=== PATIENT | female | born 1930 | race Caucasian/White ===

== ENCOUNTER 2016-06-26 06:49 | Observation (INO) | payer MEDICARE ==
[2016-06-26] MEDS ORDERED: NS 0.9% 1000 ML* 1,000 ML IV ONE ×2 (07:42→08:14)
[2016-06-26 08:09] LABS: Hematocrit 41 % (35-47); Hemoglobin 13.7 g/dl (12.0-16.0); Mean Corpuscular HGB Conc 34 g/dl (31-36); Mean Corpuscular Hemoglobin 33 pg (27-31); Mean Corpuscular Volume 96 fL (80-97); Mean Platelet Volume 8 um3 (7.4-10.4); Red Cell Distribution Width 15 % (10.5-15); White Blood Count 10.9 10^3/ul (3.5-10.8)
--- NOTE | 2016-06-26 08:19 | RAD ---
INDICATION: Abdominal pain. COMPARISON: Comparison is made with a prior chest x-ray study from July 17, 2012. TECHNIQUE: A portable view of the chest was obtained. FINDINGS: Cardiac and mediastinal contours appear to be within normal limits. Note is made of dorsal column stimulator leads which project over the mid dorsal spine. The lungs are clear. No pleural effusion is seen. IMPRESSION: NO EVIDENCE FOR ACUTE DISEASE.
[2016-06-26] MEDS ORDERED: Pantoprazole IV* 80 MG in NS 0.9% 250 ML* 250 ML IVPB ONE (08:20)
[2016-06-26] MEDS ORDERED: Ondansetron INJ* 2 MG/ML VIAL IV ONE (08:20)
[2016-06-26 08:42] LABS: Albumin 4.3 g/dL (3.2-5.2); Calcium 9.4 mg/dL (8.6-10.3); EGFR African American 85.4 (>60); EGFR Non-African American 66.4 (>60); Globulin 2.7 g/dL (2-4); Potassium 3.3 mmol/L (3.5-5.0); Total Bilirubin 0.7 mg/dL (0.2-1.0)
[2016-06-26] MEDS ORDERED: HYDROmorphone INJ* 1 MG/ML CARPUJECT SYRINGE IV ONE ×2 (08:51)
[2016-06-26] MEDS ORDERED: Iohexol 300* (CONTRAST) 10 ML SDV IV ONE (09:07)
[2016-06-26] MEDS ORDERED: oxyCODONE/Acetamin 5/325 MG* TAB PO PRN (10:11)
[2016-06-26] MEDS ORDERED: Acetaminophen TAB* 325 MG PO PRN (10:11)
[2016-06-26] MEDS ORDERED: NS 0.9% 1000 ML* 1,000 ML IV SCH (10:15)
--- NOTE | 2016-06-26 10:54 | RAD ---
INDICATION: Abdominal pain, bloody diarrhea. COMPARISON: Comparison is made with a prior CT of the abdomen and pelvis from June 08, 2010. TECHNIQUE: A CT scan of the abdomen and pelvis was performed with intravenous and oral contrast following intravenous injection of 109 ml of Omnipaque 300 nonionic contrast. Contiguous axial sections were obtained from the lung bases through the symphysis pubis. Images were reconstructed in the coronal and sagittal planes. FINDINGS: The lung bases are clear. No pleural effusion is present. The liver and spleen are normal in size without significant focal abnormality. The liver is decreased in attenuation consistent with fatty infiltration. No calcified gallstones are seen. The pancreas is within normal limits in size. The kidneys and adrenal glands are normal in size. No hydronephrosis is seen. No significant focal renal abnormality is seen. The aorta is normal in caliber and mildly tortuous. There is moderate calcific plaque present. No significant enlarged retroperitoneal lymph nodes are seen. The stomach, small and large bowel appear nondistended. The patient is status post appendectomy by history. There is moderate circumferential thickening of the wall of the descending and sigmoid colon with mild stranding in the adjacent mesenteric fat most consistent with colitis. There is moderate descending and sigmoid diverticulosis. The patient is status post hysterectomy. No free intraperitoneal air or fluid is seen. There is a focal lucent lesion present within the right iliac bone with peripheral sclerotic margin and central calcification which is unchanged from the prior study. No other focal osseous abnormalities are seen. Note is made of dorsal column stimulator leads present. IMPRESSION: 1. DIFFUSE THICKENING OF THE WALL OF THE DESCENDING AND SIGMOID COLON MOST CONSISTENT WITH COLITIS. 2. HEPATIC STEATOSIS. 3. STATUS POST APPENDECTOMY AND HYSTERECTOMY.
[2016-06-26] MEDS: NS 0.9% 1000 ML* 1,000 ML IV SCH ×2 (12:45→19:30)
[2016-06-26] MEDS: KCL 20 MEQ/100 ML IVPREMIX* 20 MEQ/100 ML BAG IV SCH ×2 (12:46→18:15)
[2016-06-26] MEDS: Lisinopril TAB* 5 MG PO SCH (12:49)
[2016-06-26] MEDS: Hydrochlorothiazide TAB* 25 MG PO SCH (12:49)
[2016-06-26] MEDS: HYDROmorphone TAB* 2 MG PO PRN ×2 (12:49→23:05)
[2016-06-26 14:50] LABS: Hematocrit 37 % (35-47); Hemoglobin 12.2 g/dl (12.0-16.0)
[2016-06-26] MEDS: Morphine INJ* 2 MG/ML 1 ML CARPUJECT IV PRN (16:00)
[2016-06-26] MEDS ORDERED: KCL 20 MEQ/100 ML IVPREMIX* 20 MEQ/100 ML BAG ONE (18:12)
--- NOTE | 2016-06-26 19:47 | HP ---
HISTORY AND PHYSICAL: DATE OF ADMISSION: 06/26/16 PRIMARY CARE PROVIDER: Lizandro Esquivel MD CHIEF COMPLAINT: Bloody diarrhea. HISTORY OF PRESENT ILLNESS: Ms. Bourne is an 86-year-old female with history of chronic pain and postlaminectomy syndrome, who stated that she started having "regular diarrhea" in the evening of 06/25/16. The patient stated that she had no abdominal pain, but she was going to the bathroom very frequently. When she went to the bathroom at 3 p.m. just before she had an urge to defecate, she had crampy abdominal pain in the left lower quadrant. Subsequent to that, she had bright red blood per rectum. Stated there was a large amount of bright red blood. She had a couple of more episodes before she presented to the emergency department. Here, she had another bloody bowel movement; it was approximately 100 cc of blood as documented by the registered nurse. The patient denies nausea or vomiting. She still has intermittent left lower quadrant abdominal cramping. Her hemoglobin so far is stable. She is going to be placed for observation with a diagnosis of lower GI bleed. PAST MEDICAL HISTORY: 1. Hypertension. 2. Depression. 3. Postlaminectomy syndrome and chronic pain, status post dorsal column stimulator placement by Dr. Boyce in February of 2016. 4. Rheumatoid arthritis. 5. Tonsillectomy and adenoidectomy as a child. 6. Hysterectomy. 7. The patient had a colonoscopy for hematochezia and diarrhea in [address] Rosen, who noted changes consistent with colitis, most likely ischemic colitis, centered around the splenic flexure. CURRENT MEDICATIONS: At home include: 1. Omeprazole 40 mg daily. 2. MiraLAX 17 g daily p.r.n. 3. Methotrexate 12.5 mg weekly. 4. Lisinopril with hydrochlorothiazide 25/2.5 one tablet daily. 5. Hydromorphone 4 mg orally every 4 hours p.r.n. 6. Folic acid 1 mg daily. 7. Aspirin 81 mg daily. ALLERGIES: CIPRO, ENBREL, TOPICAL LIDODERM, and ADALIMUMAB. FAMILY HISTORY: Positive for mother with diabetes and father was of prostate cancer. SOCIAL HISTORY: The patient denies tobacco, alcohol, or drug use. She is retired [employer] and she used to work at [employer], an [employer] until the age of 83. She currently is retired and lives at home with her , who is her surrogate. Her 's first name is Lizandro. REVIEW OF SYSTEMS: Please see history of present illness. The patient stated that her ankles occasionally get swollen. She currently denies abdominal pain, but occasionally gets abdominal cramping, last episode at 3 a.m. in the morning. The patient has history of chronic pain, but it is well controlled with medications. All the other 14 systems were reviewed with the patient and were otherwise negative. PHYSICAL EXAMINATION GENERAL: This is a very pleasant 86-year-old female who is in no acute distress. Alert, awake, and oriented x3. VITAL SIGNS: Blood pressure 159/88, heart rate of 84 and regular, respiratory rate 20, oxygen saturation 97% on room air, temperature 97.9. HEENT: Head atraumatic, normocephalic. Eyes: Pupils equal, reactive to light and accommodation. Oropharynx clear. Mucosa moist. NECK: Supple. No JVD. No bruits bilaterally. RESPIRATORY: Clear to auscultation bilaterally with very scant bibasilar crackles. CARDIOVASCULAR: Regular rate and rhythm. No murmur. ABDOMEN: Soft, nontender. Bowel sounds present in all 4 quadrants. EXTREMITIES: There is no edema. Pulses +2 bilaterally. No clubbing or cyanosis. NEURO EVALUATION: Speech clear. Cranial nerves II through XII grossly intact. Motor strength is 5/5 bilaterally. LABORATORY DATA: Showed sodium of 137, potassium 2.3, chloride 100, carbon dioxide 29, BUN 18, creatinine 0.82. Liver function tests were unremarkable. Troponin of 0. Brain natriuretic peptide was 48. CBC: White blood cell count of 10.9, hemoglobin of 13.7, hematocrit of 41, and platelets of 196. The patient's EKG shows sinus tachycardia with a heart rate of 93 beats per minute with flattening of T waves throughout. Comparing with an EKG from 2013, there were no gross changes noted. CT of abdomen and pelvis was pending at the time of dictation. ASSESSMENT AND PLAN: An 86-year-old female with recurrent crampy abdominal pain and lower GI bleed, who has history of ischemic colitis bout in 2010. At this point, ischemic colitis is most likely. CT of the abdomen was still pending at the time of dictation. The patient is going to be placed on generous intravenous hydration, clear liquid diet, and Protonix intravenously twice a day. I will ask Dr. Rosen to see patient in consultation. In regards to her rheumatoid arthritis, the patient is on methotrexate weekly and that is going to be continued as outpatient. In regards to chronic pain, morphine as well as Dilaudid p.o. is going to be provided. In regards to hypertension, the patient's hydrochlorothiazide and lisinopril is going to be continued. Likely her blood pressure is not controlled, but she did not receive her morning medications either. For DVT prophylaxis, the patient is going to be placed on sequential compression devices and anticoagulation is contraindicated due to acute bleed. For code status, the patient's code status is full and her surrogate is her . TIME SPENT: Approximately 65 minutes were spent on admission of this patient, more than half that time was spent [id number] with the patient during the interview and physical exam. CC: Lizandro Esquivel MD; Jaret Boyce MD; Antoine Rosen MD * [id number]/[facility] #: [id number] MTDD
[2016-06-26] MEDS: Pantoprazole IV* 40 MG IV SCH (20:49)
--- NOTE | 2016-06-26 21:03 | CONS ---
CC: Dr. Rivas CONSULTATION REPORT: DATE OF CONSULTATION: 06/26/16 REQUESTING PHYSICIAN: Dr. Miller. INDICATION: Bloody diarrhea. NARRATIVE: Ms. Bourne is a pleasant 86-year-old female well known to myself. I had seen her 5 years ago for a similar episode. She had ischemic colitis documented by colonoscopy and biopsies back the n. The patient states she was doing well until approximately 10 o'clock last night. She developed diarrhea. She continued to have diarrhea approximately every hour until 3 a.m. when she developed c ramps and then bleeding per rectum. She states that it was bright red. She continued to have bleed ing per rectum and then decided to come to the emergency room early this morning. She states that s he feels a little bit better now. She denies any fevers or chills. She denies any sick contacts. No new medications. PAST MEDICAL HISTORY: Significant for: 1. Depression. 2. Hypertension. 3. Rheumatoid arthritis. PAST SURGICAL HISTORY: Include: 1. Adenoidectomy. 2. Hysterectomy. ALLERGIES: Include ASPIRIN, HYDROMORPHONE, LISINOPRIL, HYDROCHLOROTHIAZIDE, METHOTREXATE, MIRALAX. She is allergic to CIPRO AND ENBREL. FAMILY HISTORY: Diabetes and prostate cancer in her family. REVIEW OF SYSTEMS: Twelve systems were reviewed, other than that mentioned in the HPI were unremark able. PHYSICAL EXAMINATION: Temperature is 99.2, blood pressure 159/69, pulse is 16. General: Well-appea ring female, no apparent distress. Alert, oriented, pleasant, fluent. Sitting up in bed, watching TV. HEENT: Mucous membranes are moist. No lesions, ulcers, or exudate. Heart: Regular rate and rhythm. Lungs: Clear to auscultation. Abdomen: Positive bowel sounds. Obese, soft, nontender, a nd nondistended. No hepatosplenomegaly. DIAGNOSTIC STUDIES/LAB DATA: Labs of note, white count is 10.9, hemoglobin is 13.7, platelets were 196, INR is 0.94, BUN of 18, creatinine of 0.82. CAT scan shows descending and sigmoid colon thicke jose consistent with colitis. ASSESSMENT AND PLAN: This is a pleasant 86-year-old female with a history of ischemic colitis in th e past who presents with similar symptoms. Differential would include ischemic colitis, diverticuli tis versus infectious colitis. Given the fact she is having crampy abdominal pain with bloody diarr hea. I favor ischemic colitis given her history of ischemic colitis in the past. Usually, divertic ular bleeding is painless. This could be an infectious process, but the patient denies any fevers o r chills. At this point, she is on fluids and pain control. Antibiotics have not been started yet. I would recommend we continue to hold off on them unless she were to develop a fever or worsening white count. We will continue to follow along very closely. [id number]/[facility] #: [id number]
[2016-06-26 21:53] LABS: Hematocrit 35 % (35-47); Hemoglobin 11.8 g/dl (12.0-16.0)
[2016-06-26] MEDS ORDERED: Ondansetron INJ* 2 MG/ML VIAL IV PRN (21:56)
[2016-06-26 21:59] LABS: Comments Flag Yes
[2016-06-27] MEDS: Morphine INJ* 2 MG/ML 1 ML CARPUJECT IV PRN (01:52)
[2016-06-27] MEDS: HYDROmorphone TAB* 2 MG PO PRN ×3 (05:39→14:30)
[2016-06-27 06:31] LABS: Hematocrit 36 % (35-47); Hemoglobin 12.3 g/dl (12.0-16.0); Mean Corpuscular HGB Conc 34 g/dl (31-36); Mean Corpuscular Hemoglobin 33 pg (27-31); Mean Corpuscular Volume 97 fL (80-97); Mean Platelet Volume 8 um3 (7.4-10.4); Red Blood Count 3.73 10^6/ul (4.0-5.4); Red Cell Distribution Width 15 % (10.5-15); White Blood Count 9.5 10^3/ul (3.5-10.8)
[2016-06-27 06:43] LABS: BUN/Creatinine Ratio 13.2 (8-20); Calcium 8.4 mg/dL (8.6-10.3); EGFR African American 93.2 (>60); EGFR Non-African American 72.5 (>60); Potassium 3.3 mmol/L (3.5-5.0)
[2016-06-27 07:55] VITALS: BP 137/72
[2016-06-27] MEDS ORDERED: Potassium Chlor TAB* 20 MEQ TAB.ER PO ONE (07:59)
[2016-06-27] MEDS: Hydrochlorothiazide TAB* 25 MG PO SCH (08:12)
[2016-06-27] MEDS: Pantoprazole IV* 40 MG IV SCH (08:12)
[2016-06-27] MEDS: Lisinopril TAB* 5 MG PO SCH (08:13)
[2016-06-27 14:17] LABS: Hematocrit 35 % (35-47); Hemoglobin 11.8 g/dl (12.0-16.0)
[2016-06-27 14:19] LABS: Comments Flag Yes
--- NOTE | 2016-06-28 00:40 | DS ---
DISCHARGE SUMMARY: DATE OF ADMISSION: 06/26/16 DATE OF DISCHARGE: 06/27/16 PRIMARY CARE PROVIDER: Dr. Lizandro Esquivel. DISCHARGE DIAGNOSIS: Lower GI bleed due to ischemic colitis. SECONDARY DIAGNOSES: 1. Hypertension. 2. Depression. 3. Postlaminectomy syndrome and chronic pain, status post dorsal column stimulator placement. 4. Rheumatoid arthritis. 5. Tonsillectomy and adenoidectomy as a child. 6. Hysterectomy. 7. History of ischemic colitis in 2010. MEDICATIONS AT DISCHARGE: Include: 1. Omeprazole 40 mg daily. 2. MiraLAX 17 g daily p.r.n. 3. Methotrexate 12.5 mg weekly. 4. Lisinopril with hydrochlorothiazide 25/2.5 one tablet daily. 5. Hydromorphone 2 to 4 mg orally every 4 hours p.r.n. 6. Folic acid 1 mg daily. 7. The patient's aspirin is to held for another five days and restarted in five days if no bleeding recurs. LABORATORY DATA ON THE DAY OF DISCHARGE: Showed white blood cell count of 9.5, hemoglobin 12.3, hematocrit 36 and platelets of 179. Sodium was 141, potassium 3.3, chloride 108, carbon dioxide 27, BUN 10, creatinine 0.76. CT of abdomen and pelvis obtained on 06/26/16, impression: "Diffuse thickening of the wall of the descending and sigmoid colon most consistent with colitis. Hepatic steatosis. Status post appendectomy and hysterectomy." CONSULTATION DURING THE HOSPITAL STAY: Dr. Rosen from Gastroenterology. HOSPITALIZATION COURSE: Jesu Bourne is an 86-year-old female with a history of ischemic colitis several years ago who presented complaining of "regular diarrhea" then later on after 5 hours evolved into bright red blood. The patient had several bloody bowel movements and associated with left lower quadrant and abdominal cramping. The patient was observed on medical floor. Her hemoglobin and hematocrit had been basically unchanged from admission. Her breathing was resolved by the time of discharge. Her abdominal cramping also resolved. From the impression from Dr. Rosen's evaluation, the patient most likely had another bout of ischemic colitis. Due to the bleed, the patient is recommended to hold her aspirin for another 5 days and then restart it. She is recommended to follow up with Dr. Esquivel in approximately 4 to 7 days. PHYSICAL EXAMINATION: At the time of discharge, blood pressure of 137/72, heart rate of 98 and regular, respiratory rate 16, oxygen saturation 97% on room air, temperature 98.0. General: The patient is a very pleasant 86-year- old female who is in no acute distress. Alert, awake, and oriented x3. HEENT: Head atraumatic, normocephalic. Pupils equal, reactive to light and accommodation. Oropharynx clear. Mucosa moist. Neck: Supple. No JVD. No bruits bilaterally. Cardiovascular: Regular rhythm. No murmur. Respiratory: Clear to auscultation bilaterally. Abdomen: Soft, nontender. Bowel sounds present in all 4 quadrants. Extremities: There is trace pedal edema. Pulses + 2 bilaterally. No clubbing or cyanosis. Neurologic: Speech clear. Cranial nerves II through XII grossly intact. Motor strength is 5/5 bilaterally. Please note that this is a short summary of the patient's hospital stay. Please refer to further medical records for details. CC: Dr. Antoine Rosen; Dr. Lizandro Esquivel* [id number]/[facility] #: [id number] [facility]
--- NOTE | 2016-07-05 09:49 | ED ---
Micheal Tobias Adam, scribed for Miller Jones MD on 06/26/16 at 0725 . GI/ HPI - HPI Summary HPI Summary: Pt is an 86 year old female presenting with abdominal cramping and bloody diarrhea. The diarrhea set on at 22:00 last night; the pt did not examine its appearance. At approximately 04:00 this morning the abdominal cramping set on and she began to notice "3-4 tablespoons" of blood in the toilet. The pain in the abdomen is worse in the LLQ. Pt also c/o generalized weakness. She denies fever, chills, CP, SOB, and external hemorrhoids. PMHx of irritable bowel, diverticulitis (years ago), RA, and HTN. Surgical Hx of appy, hysterectomy, T&A , and lumbar decompression. - History of Current Complaint Chief Complaint: EDGeneral Time Seen by Provider: 06/26/16 07:17 Stated Complaint: CRAMPS/BLOODY DIARRHEA Hx Obtained From: Patient Onset/Duration: Started Hours Ago, Atraumatic, Still Present Timing: Constant, Lasting Hours Severity: Moderate Current Severity: Moderate Location of Pain: LLQ Pain Characteristics: Cramping Associated Signs and Symptoms: Positive: Blood w/Stool, Diarrhea. Negative: External Hemorrhoids, Chest Pain Aggravating Factor(s): Nothing Alleviating Factor(s): Nothing - Allergy/Home Medications Allergies/Adverse Reactions: Allergies Allergy/AdvReac Type Severity Reaction Status Date / Time Adalimumab [From Humira] Allergy Intermediate Hives Verified 06/24/16 14:29 Benzyl Alcohol [From Enbrel] AdvReac Intermediate Swelling Verified 06/24/16 14: 29 Etanercept [From Enbrel] AdvReac Intermediate Swelling Verified 06/24/16 14:29 Tromethamine [From Enbrel] AdvReac Intermediate Swelling Verified 06/24/16 14:29 Ciprofloxacin [From Cipro] AdvReac Mild Vomiting Verified 06/26/16 10:30 Lidocaine [From Lidoderm] AdvReac Mild Itching Verified 06/24/16 14:29 PMH/Surg Hx/FS Hx/Imm Hx Endocrine/Hematology History: Denies: Hx Anticoagulant Therapy, Hx Diabetes, Hx Thyroid Disease, Other Endocrine/Hematological Disorders Cardiovascular History: Reports: Hx Hypertension - ON MEDS Denies: Hx Pacemaker/ICD, Other Cardiovascular Problems/Disorders Respiratory History: Denies: Hx Asthma, Hx Chronic Obstructive Pulmonary Disease (COPD), Other Respiratory Problems/Disorders GI History: Reports: Hx Irritable Bowel Denies: Hx Ulcer, Other GI Disorders History: Denies: Other Problems/Disorders Musculoskeletal History: Reports: Hx Arthritis - RA, Hx Rheumatoid Arthritis, Hx Back Problems, Hx Fibromyalgia, Hx Osteoporosis, Other Musculoskeletal History - SPINAL STENOSIS Sensory History: Reports: Hx Cataracts - bilateral cataracts, Hx Contacts or Glasses - GLASSES, Hx Vision Problem Denies: Hx Hearing Aid - ZUNI, Other Sensory Impairments Opthamlomology History: Reports: Hx Cataracts - bilateral cataracts, Hx Contacts or Glasses - GLASSES, Hx Vision Problem Denies: Other Sensory Impairments Neurological History: Reports: Hx Headaches - PT STATES HAPPENS VERY RARELY ANYMORE Denies: Other Neuro Impairments/Disorders - PAIN CLINIC INJECTIONS Psychiatric History: Denies: Hx Panic Disorder, Other Psychiatric Issues/Disorders - Surgical History Surgery Procedure, Year, and Place: appendectomy, hysterectomy, T&A. Lumbar decompression L4/5. TRIAL DCS Hx Anesthesia Reactions: No Infectious Disease History: No Infectious Disease History: Denies: Hx Clostridium Difficile, Hx Hepatitis, Hx Human Immunodeficiency Virus (HIV), Hx of Known/Suspected MRSA, Hx Shingles, Hx Tuberculosis, Traveled Outside the [place] in Last 30 Days - Family History Known Family History: Positive: Unknown Family History: NON CONTRIBUTORY - Social History Occupation: Retired Lives: With Family - Alcohol Use: None Hx Substance Use: No Substance Use Type: Reports: None Substance Use Comment - Amount & Last Used: dilaudid Hx Tobacco Use: No Smoking Status (MU): Never Smoked Tobacco Have You Smoked in the Last Year: No Review of Systems Constitutional: Negative Negative: Fever, Chills Negative: Chest Pain Negative: Shortness Of Breath Positive: Abdominal Pain, Diarrhea Positive: Weakness All Other Systems Reviewed And Are Negative: Yes Physical Exam - Summary Physical Exam Summary: GENERAL: Awake, alert, oriented, no acute distress, very pleasant HEENT: Head is normocephalic, atraumatic, anicteric sclera, pink conjunctiva, mucous membranes moist, no erythema, no discharge, no lesions, neck is supple, trachea is midline, no JVD CARDIAC: Regular rate and rhythm, S1, S2, no rub, no murmur, no gallop, 2+ radial and pedal pulses bilaterally RESPIRATORY: Clear to auscultation bilaterally with no rales, rhonchi, or wheezes, non-tender ABDOMEN: Tenderness in the LLQ. Bowel sounds positive, no bruit, soft, no tenderness over McBurneys point, negative [place] sign, negative Psoas sign, 2 + femoral pulses, no CVA tenderness EXTREMITIES: No edema, warm, dry, moving all extremities in a grossly normal manner NEUROLOGICAL: Mood is appropriate, moving all extremities in a grossly normal manner Triage Information Reviewed: Yes Vital Signs On Initial Exam: Initial Vitals Temp Pulse Resp BP Pulse Ox 97.9 F 84 20 159/88 97 06/26/16 07:13 06/26/16 07:13 06/26/16 07:13 06/26/16 07:13 06/26/16 07:13 Vital Signs Reviewed: Yes Diagnostics - Vital Signs Vital Signs Temp Pulse Resp BP Pulse Ox 06/26/16 07:13 97.9 F 84 20 159/88 97 - Laboratory Lab Results: Lab Results 06/26/16 06/26/16 06/26/16 Range/Units 07:50 07:50 07:50 WBC 10.9 H (3.5-10.8) 10^3/ul RBC 4.20 (4.0-5.4) 10^6/ul Hgb 13.7 (12.0-16.0) g/dl Hct 41 (35-47) % MCV 96 (80-97) fL MCH 33 H (27-31) pg MCHC 34 (31-36) g/dl RDW 15 (10.5-15) % Plt Count 196 (150-450) 10^3/ul MPV 8 (7.4-10.4) um3 Neut % (Auto) 85.5 H (38-83) % Lymph % (Auto) 7.7 L (25-47) % Davidson % (Auto) 6.0 (1-9) % Eos % (Auto) 0.4 (0-6) % Baso % (Auto) 0.4 (0-2) % Absolute Neuts (auto) 9.3 H (1.5-7.7) 10^3/ul Absolute Lymphs (auto) 0.8 L (1.0-4.8) 10^3/ul Absolute Monos (auto) 0.6 (0-0.8) 10^3/ul Absolute Eos (auto) 0 (0-0.6) 10^3/ul Absolute Basos (auto) 0 (0-0.2) 10^3/ul Absolute Nucleated RBC 0 10^3/ul Nucleated RBC % 0 INR (Anticoag Therapy) 0.94 (0.89-1.11) APTT 24.1 L (26.0-36.3) seconds Sodium 137 (133-145) mmol/L Potassium 3.3 L (3.5-5.0) mmol/L Chloride 100 L (101-111) mmol/L Carbon Dioxide 29 (22-32) mmol/L Anion Gap 8 (2-11) mmol/L BUN 18 (6-24) mg/dL Creatinine 0.82 (0.51-0.95) mg/dL Est GFR ( Amer) 85.4 (>60) Est GFR (Non-Af Amer) 66.4 (>60) BUN/Creatinine Ratio 22.0 H (8-20) Glucose 145 H (70-100) mg/dL Lactic Acid (0.5-2.0) mmol/L Calcium 9.4 (8.6-10.3) mg/dL Total Bilirubin 0.70 (0.2-1.0) mg/dL AST 23 (13-39) U/L ALT 26 (7-52) U/L Alkaline Phosphatase 96 (34-104) U/L Total Creatine Kinase 42 (10-223) U/L CK-MB (CK-2) 1.1 (0.6-6.3) ng/mL Troponin I 0.00 (<0.04) ng/mL B-Natriuretic Peptide ( - 100) pg/mL Total Protein 7.0 (6.4-8.9) g/dL Albumin 4.3 (3.2-5.2) g/dL Globulin 2.7 (2-4) g/dL Albumin/Globulin Ratio 1.6 (1-3) Blood Type Antibody Screen 06/26/16 06/26/16 06/26/16 Range/Units 07:50 07:50 07:50 WBC (3.5-10.8) 10^3/ul RBC (4.0-5.4) 10^6/ul Hgb (12.0-16.0) g/dl Hct (35-47) % MCV (80-97) fL MCH (27-31) pg MCHC (31-36) g/dl RDW (10.5-15) % Plt Count (150-450) 10^3/ul MPV (7.4-10.4) um3 Neut % (Auto) (38-83) % Lymph % (Auto) (25-47) % Davidson % (Auto) (1-9) % Eos % (Auto) (0-6) % Baso % (Auto) (0-2) % Absolute Neuts (auto) (1.5-7.7) 10^3/ul Absolute Lymphs (auto) (1.0-4.8) 10^3/ul Absolute Monos (auto) (0-0.8) 10^3/ul Absolute Eos (auto) (0-0.6) 10^3/ul Absolute Basos (auto) (0-0.2) 10^3/ul Absolute Nucleated RBC 10^3/ul Nucleated RBC % INR (Anticoag Therapy) (0.89-1.11) APTT (26.0-36.3) seconds Sodium (133-145) mmol/L Potassium (3.5-5.0) mmol/L Chloride (101-111) mmol/L Carbon Dioxide (22-32) mmol/L Anion Gap (2-11) mmol/L BUN (6-24) mg/dL Creatinine (0.51-0.95) mg/dL Est GFR ( Amer) (>60) Est GFR (Non-Af Amer) (>60) BUN/Creatinine Ratio (8-20) Glucose (70-100) mg/dL Lactic Acid 1.7 (0.5-2.0) mmol/L Calcium (8.6-10.3) mg/dL Total Bilirubin (0.2-1.0) mg/dL AST (13-39) U/L ALT (7-52) U/L Alkaline Phosphatase (34-104) U/L Total Creatine Kinase (10-223) U/L CK-MB (CK-2) (0.6-6.3) ng/mL Troponin I (<0.04) ng/mL B-Natriuretic Peptide 48 ( - 100) pg/mL Total Protein (6.4-8.9) g/dL Albumin (3.2-5.2) g/dL Globulin (2-4) g/dL Albumin/Globulin Ratio (1-3) Blood Type O Positive Antibody Screen Negative Result Diagrams: 06/27/16 14:09 06/27/16 06:15 Lab Statement: Any lab studies that have been ordered have been reviewed, and results considered in the medical decision making process. - Radiology CXR Xray Interpretation: No Acute Changes Radiology Interpretation Completed By: Radiologist - CT A/P CT Interpretation Completed By: Radiologist - IMPRESSION: 1. DIFFUSE THICKENING OF THE WALL OF THE DESCENDING AND SIGMOID COLON MOST CONSISTENT WITH COLITIS. 2. HEPATIC STEATOSIS. 3. STATUS POST APPENDECTOMY AND HYSTERECTOMY. - EKG 07:53 Cardiac Rate: NL - 93 BPM EKG Rhythm: Sinus Rhythm - Normal EKG Interpretation: No STEMI - Additional Comments Diagnostic Additional Comments: Stool Occult Blood - POSITIVE Troponin I - 0.00 GIGU Course/Dx - Diagnoses Provider Diagnoses: GI BLEED Discharge - Discharge Plan Condition: Improved Disposition: ADMITTED TO [facility] documentation as recorded by the Micheal ling Adam accurately reflects the service I personally performed and the decisions made by , Miller Jones MD.
== END 2016-06-27 14:40 | disposition home or self-care (01) ==
LOC: ED 06:49 → MED 10:11
PROVIDERS: ADMIT Internal Medicine; ATTEND Internal Medicine
DX: K92.2 Gastrointestinal hemorrhage, unspecified (principal); K55.9 Vascular disorder of intestine, unspecified; R10.30 Lower abdominal pain, unspecified; I10 Essential (primary) hypertension; F32.9 Major depressive disorder, single episode, unspecified; M06.9 Rheumatoid arthritis, unspecified; R94.31 Abnormal electrocardiogram [ECG] [EKG]; N28.89 Other specified disorders of kidney and ureter; Z79.899 Other long term (current) drug therapy; Z88.8 Allergy status to other drugs, medicaments and biological substances; Z88.1 Allergy status to other antibiotic agents
CPT/HCPCS: 36415; 71010; 74177; 80048; 80053; 82272; 82550; 82553; 83605; 83880; 84484; 85014; 85018; 85025; 85610; 85730; 86850; 86900; 86901; 93005; 96365; 96366; 96367; 96375; 96376; 99285; A9270-GY; G0378; J1170; J2270; J2405; J3480; Q9967

== ENCOUNTER 2016-08-11 11:13 | Emergency (ER) | payer MEDICARE ==
[2016-08-11 11:33] VITALS: BP 165/80
--- NOTE | 2016-08-11 12:38 | RAD ---
HISTORY: Wheezing COMPARISONS: June 26, 2016 VIEWS: 2: Frontal dual-energy and lateral views of the chest. FINDINGS: CARDIOMEDIASTINAL SILHOUETTE: The cardiomediastinal silhouette is normal. TRACE: The trace are normal. PLEURA: The costophrenic angles are sharp. No pleural abnormalities are noted. LUNG PARENCHYMA: There is mild hyperinflation. ABDOMEN: The upper abdomen is clear. There is no subphrenic gas. BONES AND SOFT TISSUES: A dorsal column stimulator is noted OTHER: None. IMPRESSION: MILD HYPERINFLATION. NO ACTIVE CARDIOPULMONARY DISEASE.
--- NOTE | 2016-08-11 13:02 | UC ---
Respiratory Complaint HPI - HPI Summary HPI Summary: ONE MONTH OF CONGESTION AND COUGH WITH WHEEZING AT NIGHT. SUPPOSED TO GO TO SURGERY "ANYTIME WITHIN THE NEXT FEW WEEKS". - History of Current Complaint Chief Complaint: UCRespiratory Stated Complaint: COUGH WHEEZING Time Seen by Provider: 08/11/16 11:54 Hx Obtained From: Patient Hx Last Menstrual Period: NA Onset/Duration: Gradual Onset, Lasting Weeks, Still Present Timing: Intermittent Episodes Severity Initially: Mild Severity Currently: Moderate Character: Cough: Nonproductive Aggravating Factors: Deep Breaths, Recumbent Position Alleviating Factors: Spontaneous Resolution Associated Signs And Symptoms: Positive: URI, Nasal Congestion, Hoarseness - Risk Factors Pulmonary Embolism Risk Factors: Negative Cardiac Risk Factors: Negative Pseudomonas Risk Factors: Negative Tuberculosis Risk Factors: Negative - Allergies/Home Medications Allergies/Adverse Reactions: Allergies Allergy/AdvReac Type Severity Reaction Status Date / Time Adalimumab [From Humira] Allergy Intermediate Hives Verified 07/14/16 15:41 Benzyl Alcohol [From Enbrel] AdvReac Intermediate Swelling Verified 07/14/16 15: 41 Etanercept [From Enbrel] AdvReac Intermediate Swelling Verified 07/14/16 15:41 Tromethamine [From Enbrel] AdvReac Intermediate Swelling Verified 07/14/16 15:41 Ciprofloxacin [From Cipro] AdvReac Mild Vomiting Verified 07/14/16 15:41 Lidocaine [From Lidoderm] AdvReac Mild Itching Verified 07/14/16 15:41 PMH/Surg Hx/FS Hx/Imm Hx Previously Healthy: Yes Endocrine History Of: Denies: Diabetes, Thyroid Disease Cardiovascular History Of: Reports: Hypertension Denies: Cardiac Disorders, Pacemaker/ICD Respiratory History Of: Reports: Bronchitis Denies: COPD, Asthma GI/ History Of: Denies: Ulcer Other History Of: Negative For: Anticoagulant Therapy - Surgical History Surgical History: Yes Surgery Procedure, Year, and Place: appendectomy, hysterectomy, T&A. Lumbar decompression L4/5. TRIAL DCS - Family History Known Family History: Positive: Unknown Family History: NON CONTRIBUTORY - Social History Occupation: Retired Lives: With Family Alcohol Use: None Substance Use Type: None Substance Use Comment - Amount & Last Used: dilaudid Smoking Status (MU): Never Smoked Tobacco Have You Smoked in the Last Year: No - Immunization History Most Recent Influenza Vaccination: 2016 Most Recent Tetanus Shot: in the past Most Recent Pneumonia Vaccination: 2016 Review of Systems Constitutional: Negative Skin: Negative Eyes: Negative ENT: Nasal Discharge Respiratory: Cough Cardiovascular: Negative Gastrointestinal: Negative Genitourinary: Negative Motor: Negative Neurovascular: Negative Musculoskeletal: Negative Neurological: Negative Psychological: Negative All Other Systems Reviewed And Are Negative: Yes Physical Exam Triage Information Reviewed: Yes Appearance: Well-Appearing, No Pain Distress, Well-Nourished Vital Signs: Initial Vital Signs Temp 98.3 F 08/11/16 11:29 Pulse 79 08/11/16 11:29 Resp 16 08/11/16 11:29 BP 165/80 08/11/16 11:29 Pulse Ox 98 08/11/16 11:29 Vital Signs Reviewed: Yes Eye Exam: Normal Eyes: Positive: Conjunctiva Clear ENT: Positive: Hearing grossly normal, Pharynx normal, TM bulging, TM dull Dental Exam: Normal Neck exam: Normal Respiratory Exam: Normal Respiratory: Positive: Chest non-tender, Lungs clear, Normal breath sounds, No respiratory distress, No accessory muscle use Cardiovascular Exam: Normal Cardiovascular: Positive: RRR, No Murmur, Pulses Normal, Brisk Capillary Refill Abdominal Exam: Normal Abdomen Description: Positive: Nontender, No Organomegaly Musculoskeletal Exam: Normal Musculoskeletal: Positive: Strength Intact, ROM Intact Neurological Exam: Normal Psychological Exam: Normal Psychological: Positive: Normal Response To Family Skin Exam: Normal UC Diagnostic Evaluation - Laboratory O2 Sat by Pulse Oximetry: 98 Respiratory Course/Dx - Differential Dx/Diagnosis Differential Diagnosis/HQI/PQRI: Sinusitis Provider Diagnoses: SINUSITIS. BRONCHITIS Discharge - Discharge Plan Condition: Stable Disposition: HOME Prescriptions: Benzonatate CAP* [Tessalon CAP*] 100 mg PO TID #15 cap Cephalexin CAP* [Keflex CAP*] 500 mg PO TID #30 cap Patient Education Materials: Sinusitis (ED) Referrals: Lizandro Esquivel MD [Primary Care Provider] -
== END 2016-08-11 13:00 | disposition home or self-care (01) ==
LOC: UCEAST 11:13
DX: J40 Bronchitis, not specified as acute or chronic (principal); J32.9 Chronic sinusitis, unspecified; I10 Essential (primary) hypertension; Z88.1 Allergy status to other antibiotic agents; Z88.8 Allergy status to other drugs, medicaments and biological substances
CPT/HCPCS: 71020; 99212; G0463

== ENCOUNTER 2016-08-19 15:26 | Emergency (ER) | payer MEDICARE ==
[2016-08-19] MEDS ORDERED: NS 0.9% 1000 ML* 2,000 ML IV ONE (18:43)
[2016-08-19] MEDS ORDERED: Albuterol/Ipratropium NEB.SOL* Albuterol 2.5 MG/Ipratropium 0.5 MG 3 ML INH ONE (18:44)
[2016-08-19 19:05] LABS: Hematocrit 36 % (35-47); Hemoglobin 12.4 g/dl (12.0-16.0); Mean Corpuscular HGB Conc 35 g/dl (31-36); Mean Corpuscular Hemoglobin 34 pg (27-31); Mean Corpuscular Volume 97 fL (80-97); Mean Platelet Volume 7 um3 (7.4-10.4); Red Cell Distribution Width 14 % (10.5-15)
[2016-08-19 19:26] LABS: Albumin 4.3 g/dL (3.2-5.2); BUN/Creatinine Ratio 14.3 (8-20); Calcium 9.5 mg/dL (8.6-10.3); EGFR African American 91.8 (>60); EGFR Non-African American 71.4 (>60); Globulin 2.9 g/dL (2-4); Potassium 3.5 mmol/L (3.5-5.0); Total Bilirubin 0.6 mg/dL (0.2-1.0); Total Protein 7.2 g/dL (6.4-8.9)
--- NOTE | 2016-08-19 19:31 | RAD ---
INDICATION: Shortness of breath, cough. Weakness, fatigue. History of bronchitis. COMPARISON: August 11, 2016 TECHNIQUE: Dual energy PA and routine lateral views of the chest were obtained. REPORT: Elevated lung volumes. Mild linear atelectasis at the level of the RIGHT minor fissure anteriorly with mild interval increase. Small upper lung zone calcified granulomas without change. No alveolar consolidation concerning for pneumonia, suspicious focal pulmonary lesion, pleural effusion, pneumothorax. The heart, pulmonary vasculature, and mediastinal contours are unremarkable. Dorsal spine stimulator leads noted without change in position. IMPRESSION: Stigmata of probable chronic obstructive pulmonary disease and previous granulomatous disease. Mild subsegmental atelectasis along the RIGHT minor fissure with interval increase.
[2016-08-19] MEDS ORDERED: Azithromycin TAB* 250 MG PO ONE (19:47)
[2016-08-19] MEDS ORDERED: Albuterol 2.5 MG/3 ML NEB.SOL* (0.083%) INH ONE (19:48)
[2016-08-19 20:09] VITALS: BP 158/75
--- NOTE | 2016-08-19 20:10 | ED ---
Micheal Tobias Adam, scribed for Kt Monreal MD on 08/19/16 at 1840 . Shortness of Breath - HPI Summary HPI Summary: Pt is an 86 year old female presenting with a 2 week Hx of SOB with coughing nonproductive and wheezing. Was seen at on 08/11, had CXR obtained. She states that she is not any better since then. She also c/o BORRERO. Denies edema, CP , fever, chills. She is also c/o HTN and has pain btw her shoulder blades. No nausea or vomiting. She is a non-smoker. She has no lung problems and no Hx of heart disease. Hx of RA. She says she's extremely SOB with minimal exertion. She denies orthopnea. She states she recently got a PNA vaccine. She lives with her . She does not drink EtOH. - History of Current Complaint Chief Complaint: EDUpperRespComplaint Hx Obtained From: Patient Onset/Duration: Gradual Onset, Lasting Weeks, Still Present Timing: Constant Current Severity: Moderate Dyspnea At: Exertion - Minimal Associated Signs & Symptoms: Cough (Nonproductive), Wheezing - Allergy/Home Medications Allergies/Adverse Reactions: Allergies Allergy/AdvReac Type Severity Reaction Status Date / Time Adalimumab [From Humira] Allergy Intermediate Hives Verified 07/14/16 15:41 Benzyl Alcohol [From Enbrel] AdvReac Intermediate Swelling Verified 07/14/16 15: 41 Etanercept [From Enbrel] AdvReac Intermediate Swelling Verified 07/14/16 15:41 Tromethamine [From Enbrel] AdvReac Intermediate Swelling Verified 07/14/16 15:41 Ciprofloxacin [From Cipro] AdvReac Mild Vomiting Verified 07/14/16 15:41 Lidocaine [From Lidoderm] AdvReac Mild Itching Verified 07/14/16 15:41 PMH/Surg Hx/FS Hx/Imm Hx Endocrine/Hematology History: Denies: Hx Anticoagulant Therapy, Hx Diabetes, Hx Thyroid Disease, Other Endocrine/Hematological Disorders Cardiovascular History: Reports: Hx Hypertension Denies: Hx Pacemaker/ICD, Other Cardiovascular Problems/Disorders Respiratory History: Reports: Hx Chronic Bronchitis Denies: Hx Asthma, Hx Chronic Obstructive Pulmonary Disease (COPD), Other Respiratory Problems/Disorders GI History: Reports: Hx Diverticulosis, Hx Irritable Bowel Denies: Hx Ulcer, Other GI Disorders History: Denies: Other Problems/Disorders Musculoskeletal History: Reports: Hx Arthritis - RA, Hx Rheumatoid Arthritis, Hx Back Problems, Hx Fibromyalgia, Hx Osteoporosis, Other Musculoskeletal History - SPINAL STENOSIS Sensory History: Reports: Hx Cataracts - bilateral cataracts, Hx Contacts or Glasses - GLASSES, Hx Vision Problem, Hx Hearing Problem Denies: Hx Hearing Aid - [place], Other Sensory Impairments Opthamlomology History: Reports: Hx Cataracts - bilateral cataracts, Hx Contacts or Glasses - GLASSES, Hx Vision Problem Denies: Other Sensory Impairments Neurological History: Reports: Hx Headaches - PT STATES HAPPENS VERY RARELY ANYMORE Denies: Other Neuro Impairments/Disorders - PAIN CLINIC INJECTIONS Psychiatric History: Denies: Hx Panic Disorder, Other Psychiatric Issues/Disorders - Surgical History Surgery Procedure, Year, and Place: appendectomy, hysterectomy, T&A. Lumbar decompression L4/5. TRIAL DCS Hx Anesthesia Reactions: No Infectious Disease History: No Infectious Disease History: Denies: Hx Clostridium Difficile, Hx Hepatitis, Hx Human Immunodeficiency Virus (HIV), Hx of Known/Suspected MRSA, Hx Shingles, Hx Tuberculosis, Traveled Outside the [place] in Last 30 Days - Family History Known Family History: Positive: Other - Negative: malignant hyperthermia, anesthesia reaction - Social History Occupation: Retired Lives: With Family - Alcohol Use: None Hx Substance Use: No Substance Use Type: Reports: None Substance Use Comment - Amount & Last Used: dilaudid Hx Tobacco Use: No Smoking Status (MU): Never Smoked Tobacco Have You Smoked in the Last Year: No Review of Systems Negative: Fever, Chills Negative: Chest Pain Positive: Shortness Of Breath, Cough, Other - Wheezing Negative: Vomiting, Nausea Positive: Myalgia - Between shoulder blades. Negative: Edema Positive: Headache All Other Systems Reviewed And Are Negative: Yes Physical Exam - Summary Physical Exam Summary: The patient is well-nourished in no acute distress and in no acute pain. The skin is warm and dry and skin color reflects adequate perfusion. Good skin turgor. HEENT: The head is normocephalic and atraumatic. The pupils are equal and reactive. The conjunctivae are clear and without drainage. Nares are patent and without drainage. No rhinorrhea. No sinus tenderness. Mouth reveals dry mucous membranes. The external ears are intact. The ear canals are patent and without drainage. The tympanic membranes are intact. Neck is supple with full range of motion and non-tender. There are no carotid bruits. There is no neck vein distension. Respiratory: Mild SOB noted. Diffuse wheezing. Rales, mostly in right base. Cardiovascular: Heart is regular rate and rhythm. There is no murmur or rub auscultated. There is no peripheral edema and pulses are symmetrical and equal. Abdomen: The abdomen is obese, soft and non-tender. Musculoskeletal: There is no back pain noted. Extremities are non-tender with full range of motion. Capillary refill less than 2 seconds. Neurological: Patient is alert and oriented to person, place and time. The patient has symmetrical motor strength in all four extremities. Cranial nerves are grossly intact. Deep tendon reflexes are symmetrical and equal in all four extremities. Psychiatric: The patient has an appropriate affect and does not exhibit any anxiety or depression. Triage Information Reviewed: Yes Vital Signs On Initial Exam: Initial Vitals Temp Pulse Resp BP Pulse Ox 99.5 F 87 20 180/93 99 08/19/16 15:29 08/19/16 15:29 08/19/16 15:29 08/19/16 15:29 08/19/16 15:29 Vital Signs Reviewed: Yes Diagnostics - Vital Signs Vital Signs Temp Pulse Resp BP Pulse Ox 08/19/16 16:41 97.4 F 92 20 157/80 96 08/19/16 15:29 99.5 F 87 20 180/93 99 - Laboratory Result Diagrams: 08/19/16 18:50 08/19/16 18:50 Lab Statement: Any lab studies that have been ordered have been reviewed, and results considered in the medical decision making process. Re-Evaluation - Re-Evaluation First Eval Re-Evaluation Time: 19:45 Change: Improved - After breathing treatment the pt feels better. Lungs are clear. Reviewed labs and CXR with patient. Plan of action: pt to be discharged home with a Z-Wilfred and albuterol nebulized solution. Pt declined steroids. Course/Dx - Diagnoses Provider Diagnoses: Acute bronchitis Discharge - Discharge Plan Condition: Stable Disposition: HOME Patient Education Materials: Acute Bronchitis (ED) Referrals: Lizandro Esquivel MD [Primary Care Provider] - Additional Instructions: Follow up with Dr. Esquivel. The documentation as recorded by the Micheal ling Adam accurately reflects the service I personally performed and the decisions made by , Kt Monreal MD.
[2016-08-19 20:19] LABS: C Reactive Protein 20.19 mg/L (< 5.00)
== END 2016-08-19 20:07 | disposition home or self-care (01) ==
LOC: ED 15:26
DX: J20.9 Acute bronchitis, unspecified (principal); R06.02 Shortness of breath; R05 Cough; R06.2 Wheezing
CPT/HCPCS: 36415; 71020; 80053; 82550; 82553; 83605; 83880; 84484; 85025; 86140; 99282; A9270-GY

== ENCOUNTER 2017-10-09 15:46 | Emergency (ER) | payer MEDICARE ==
--- NOTE | 2017-10-09 15:54 | UC ---
Respiratory Complaint HPI - HPI Summary HPI Summary: 87 y/o female presents to the urgent care c/o productive cough w/ yellowish phlegm for the past 3 days. Pt states she usually gets the common cold at this time of the year and end up w/ bronchitis and her PCP Rx the Z-wilfred PO. Pt felt mild SOB this morning and did one of her 's albuterol treatment about 45min ago and she felt better. She has taken Mucinex PO and cough drops to alleviate cough. Pt states mild chills, body aches and sweats, specially at night time. She has not taking her temp. Pt denies sore throat, BORRERO, dizziness, chest pian, abdominal pain, N/V/D. - History of Current Complaint Stated Complaint: COUGH Time Seen by Provider: 10/09/17 15:53 Hx Obtained From: Patient Hx Last Menstrual Period: NA Onset/Duration: Gradual Onset, Lasting Days - 3 days, Still Present, Worse Since - this morning Timing: Intermittent Episodes Severity Initially: Mild Severity Currently: Mild Pain Intensity: 0 Pain Scale Used: 0-10 Numeric Character: Cough: Productive, Sputum Description: - yellowish Aggravating Factors: Recumbent Position Alleviating Factors: Bronchodilator, OTC Meds Associated Signs And Symptoms: Positive: Dyspnea, Chills, URI, Nasal Congestion. Negative: Fever - Risk Factors Pulmonary Embolism Risk Factors: Negative Cardiac Risk Factors: Hypertension Pseudomonas Risk Factors: Negative Tuberculosis Risk Factors: Negative - Allergies/Home Medications Allergies/Adverse Reactions: Allergies Allergy/AdvReac Type Severity Reaction Status Date / Time adalimumab [From Humira] Allergy Unknown Verified 10/09/17 16:01 Reaction Details ciprofloxacin [From Cipro] Allergy Unknown Verified 10/09/17 16:01 Reaction Details etanercept [From Enbrel] Allergy Unknown Verified 10/09/17 16:01 Reaction Details lidocaine [From Lidoderm] Allergy Unknown Verified 10/09/17 16:01 Reaction Details Home Medications: Home Medications Aspirin 81 mg CHEW TAB* 1 chw 10/09/17 [History] PMH/Surg Hx/FS Hx/Imm Hx Previously Healthy: Yes Other Endocrine History: Rheumatoid arthritis Cardiovascular History: Hypertension GI/ History: Gastroesophageal Reflux Other GI/ History: Constipation Other History Of: Negative For: Anticoagulant Therapy - Surgical History Surgical History: Yes Surgery Procedure, Year, and Place: appendectomy, hysterectomy, T&A. Lumbar decompression L4/5. TRIAL DCS - Family History Known Family History: Positive: Unknown - Pt doens't know any FMHX Family History: NON CONTRIBUTORY - Social History Occupation: Retired Lives: With Family Alcohol Use: None Substance Use Type: None Substance Use Comment - Amount & Last Used: dilaudid Smoking Status (MU): Never Smoked Tobacco Have You Smoked in the Last Year: No - Immunization History Most Recent Influenza Vaccination: 2016 Most Recent Tetanus Shot: in the past Most Recent Pneumonia Vaccination: 2016 Review of Systems Constitutional: Chills, Other - body aches Skin: Negative Eyes: Negative ENT: Nasal Discharge, Sinus Congestion Respiratory: Shortness Of Breath - mild this morning, Cough - producitve Cardiovascular: Negative Gastrointestinal: Negative Genitourinary: Negative Motor: Negative Neurovascular: Negative Musculoskeletal: Negative Neurological: Negative Psychological: Negative Is Patient Immunocompromised?: No All Other Systems Reviewed And Are Negative: Yes Physical Exam - Summary Physical Exam Summary: Vital Signs Reviewed: Yes General: well developed, well nourished old female sitting in the examining table w/o any apparent distress Eyes: Positive: Conjunctiva Clear - PERRLA, EOMI, fundi grossly normal ENT: Positive: Normal ENT inspection, Hearing grossly normal, Pharynx normal, Nasal congestion - edematous and erythematous nasal mucosa, Nasal drainage - yellowish drainage, TMs normal. Negative: Tonsillar swelling, Tonsillar exudate Neck: Positive: Supple, Nontender, No Lymphadenopathy Respiratory: no orthopnea or dyspnea. Able to speak in full sentences, no retractions or accessory muscle use, no tripod position, stridor, or head bobbing. positive breath sounds bilaterally, B/L posterior upper lungs w/ mild scattered rhonchi, no wheezing, crackles, or rales. Cardiovascular: Positive: RRR, No Murmur, Pulses Normal, Brisk Capillary Refill Abdomen Description: Positive: Nontender, No Organomegaly, Soft. Negative: CVA Tenderness (R), CVA Tenderness (L) Bowel Sounds: Positive: Present Musculoskeletal Exam: Normal Musculoskeletal: Positive: Strength Intact, ROM Intact, No Edema Neurological Exam: Normal Psychological Exam: Normal Skin Exam: Normal Triage Information Reviewed: Yes Respiratory Course/Dx - Course Course Of Treatment: 87 y/o female presents to the urgent care c/o productive cough w/ yellowish phlegm for the past 3 days. Pt states she usually gets the common cold at this time of the year and end up w/ bronchitis and her PCP Rx the Z-wilfred PO. Pt felt mild SOB this morning and did one of her 's albuterol treatment about 45min ago and she felt better. She has taken Mucinex PO and cough drops to alleviate cough. Pt states mild chills, body aches and sweats, specially at night time. She has not taking her temp. Pt denies sore throat, BORRERO, dizziness, chest pian, abdominal pain, N/V/D. Hx obtained. Pt w/ upper posterior b/L lungs w/ scattered rhonchi on examination. O2Sat: 96%. Rapid influena A&B ordered:negative Chest X-ray ordered to r/o pneumonia, Impression: no cardiopulmonary disease observed. Pt with probably COPD exacerbation due to bronchitis on examination. Pt prefers Z-wilfred PO. However She is currently taking Metrotrexate PO. I spoke to the Pt and explained the possibility of cross reaction w/ these 2 meds. I will Rx Doxicycline PO and Albuterol inhaler and Tessalon tabs to alleviate bronchospasm. Rx Albuterol nebulizing Tx to do it at night time. Pt advised to increase fluid intake and eat well. if not improvement or worsening of symptoms to return to the urgent care or f/u with PCP for further management.Pt's BP is elevated today advised to decrease salt in diet, monitor BP and f/u with PCP for further management. Pt understood and agreed with plan of care. - Differential Dx/Diagnosis Differential Diagnosis/HQI/PQRI: Asthma, Bronchitis, Exacerbation Of COPD, Influenza, Lower Resp Infection, Sinusitis Provider Diagnoses: 1- Acute bronchitis. 2-cough. 3-Uncontrolled HTN Discharge - Sign-Out/Discharge Documenting (check all that apply): Discharge - Discharge Plan Condition: Stable Disposition: HOME Prescriptions: Albuterol 2.5MG/3ML (0.083%)* [Ventolin 2.5 MG/3 ML NEB.KUN*] 2.5 mg INH Q6H #1 box Albuterol HFA INHALER* [Ventolin HFA Inhaler*] 1 - 2 puff INH Q6H PRN #1 mdi PRN Reason: bronchospasm Azithromyxin WILFRED (NF) [Z-Wilfred (Zithromax) 250 mg tabs #6] 2 tab PO .TODAY, THEN 1 DAILY #6 tab Benzonatate CAP* [Tessalon 100 MG CAP*] 100 mg PO TID #21 cap DOXYcycline CAP(*) [DOXYcycline 100MG CAP(*)] 100 mg PO DAILY #20 cap Patient Education Materials: Acute Bronchitis (ED), Low-Sodium Diet (ED) Referrals: Lizandro Esquivel MD [Primary Care Provider] - 2 Days Additional Instructions: 1-Please take full course of antibiotic to avoid resistance. 2-Take Tessalon PO tabs as directed and use the albuterol inhaler to alleviate cough. Do the nebulizer treatment at night time. Increase fluid intake, rest and eat well. 3- If symptoms do not improve or worsen or your develop SOB with fever and severe wheezing please go immediately to the ER further evaluation and treatment. 4- F/u with your PCP in 2-3 days for further management if not improvement of symptoms 5-Your BP is elevated today. please decrease salt in your diet, monitor BP and if it continues to be elevated please f/u with your PCP for further management - Billing Disposition and Condition Condition: STABLE Disposition: HOME
[2017-10-09 15:58] VITALS: BP 150/83
--- NOTE | 2017-10-09 16:56 | RAD ---
Indication: Cough, shortness of breath. 2 views of the chest demonstrate no mediastinal shift. Heart is of normal size and configuration. Lung jaeger are clear. When compared to previous exam of August 19, 2016 no significant change is noted. Neurostimulator leads are in place. IMPRESSION: No active cardiopulmonary disease is noted.
--- NOTE | 2017-10-10 11:22 | UC ---
- Progress Note Progress Note: I called this patient after chart review. Being treated for exacerbation of COPD. Vomited first dose of doxycycline. We discussed alternative medications, but she has a strong preference for azithromycin, which she has used in the past without side effects. Rx will be sent. Discharge - Sign-Out/Discharge Documenting (check all that apply): Discharge - dishcarged - Discharge Plan Condition: Stable Disposition: HOME Prescriptions: Albuterol 2.5MG/3ML (0.083%)* [Ventolin 2.5 MG/3 ML NEB.KUN*] 2.5 mg INH Q6H #1 box Albuterol HFA INHALER* [Ventolin HFA Inhaler*] 1 - 2 puff INH Q6H PRN #1 mdi PRN Reason: bronchospasm Benzonatate CAP* [Tessalon 100 MG CAP*] 100 mg PO TID #21 cap DOXYcycline CAP(*) [DOXYcycline 100MG CAP(*)] 100 mg PO DAILY #20 cap Patient Education Materials: Acute Bronchitis (ED), Low-Sodium Diet (ED) Referrals: Lizandro Esquivel MD [Primary Care Provider] - 2 Days Additional Instructions: 1-Please take full course of antibiotic to avoid resistance. 2-Take Tessalon PO tabs as directed and use the albuterol inhaler to alleviate cough. Do the nebulizer treatment at night time. Increase fluid intake, rest and eat well. 3- If symptoms do not improve or worsen or your develop SOB with fever and severe wheezing please go immediately to the ER further evaluation and treatment. 4- F/u with your PCP in 2-3 days for further management if not improvement of symptoms 5-Your BP is elevated today. please decrease salt in your diet, monitor BP and if it continues to be elevated please f/u with your PCP for further management - Billing Disposition and Condition Condition: STABLE Disposition: HOME
== END 2017-10-09 17:10 | disposition home or self-care (01) ==
LOC: UCEAST 15:46
DX: J20.9 Acute bronchitis, unspecified (principal); R03.0 Elevated blood-pressure reading, without diagnosis of hypertension; Z88.4 Allergy status to anesthetic agent; Z88.1 Allergy status to other antibiotic agents; Z88.8 Allergy status to other drugs, medicaments and biological substances; M06.9 Rheumatoid arthritis, unspecified; I10 Essential (primary) hypertension; K21.9 Gastro-esophageal reflux disease without esophagitis; K59.00 Constipation, unspecified
CPT/HCPCS: 71046; 87502; 99212; G0463

== ENCOUNTER 2018-04-28 10:16 | Emergency (ER) | payer MEDICARE ==
--- NOTE | 2018-04-28 12:27 | UC ---
Respiratory Complaint HPI - HPI Summary HPI Summary: Started w/ 2 day cough/congestion. denies sob, LE swelling, sick contacts or fever. nonsmoker. not exposed to 2nd hand smoke. - History of Current Complaint Chief Complaint: UCRespiratory Stated Complaint: COUGH, AND CHEST CONGESTION Time Seen by Provider: 04/28/18 12:12 Hx Obtained From: Patient Hx Last Menstrual Period: NA ?: No Onset/Duration: Sudden Onset Pain Intensity: 0 Pain Scale Used: 0-10 Numeric Character: Cough: Nonproductive Aggravating Factors: Nothing Alleviating Factors: Nothing Associated Signs And Symptoms: Positive: URI, Nasal Congestion - Risk Factors Pulmonary Embolism Risk Factors: Negative - Allergies/Home Medications Allergies/Adverse Reactions: Allergies Allergy/AdvReac Type Severity Reaction Status Date / Time adalimumab [From Humira] Allergy Unknown Verified 04/28/18 10:23 Reaction Details ciprofloxacin [From Cipro] Allergy Unknown Verified 04/28/18 10:23 Reaction Details etanercept [From Enbrel] Allergy Unknown Verified 04/28/18 10:23 Reaction Details lidocaine [From Lidoderm] Allergy Unknown Verified 04/28/18 10:23 Reaction Details PMH/Surg Hx/FS Hx/Imm Hx Previously Healthy: Yes Cardiovascular History: Hypertension Other Psychological History: rheumatoid arthritis Other History Of: Negative For: Anticoagulant Therapy - Surgical History Surgical History: Yes Surgery Procedure, Year, and Place: appendectomy, hysterectomy, T&A. Lumbar decompression L4/5. TRIAL DCS - Family History Known Family History: Positive: Unknown - Pt doens't know any FMHX, Other - Negative: malignant hyperthermia, anesthesia reaction Family History: NON CONTRIBUTORY - Social History Alcohol Use: None Substance Use Type: None Substance Use Comment - Amount & Last Used: dilaudid Smoking Status (MU): Never Smoked Tobacco Have You Smoked in the Last Year: No - Immunization History Most Recent Influenza Vaccination: 2018 Most Recent Tetanus Shot: in the past Most Recent Pneumonia Vaccination: 2016 Review of Systems All Other Systems Reviewed And Are Negative: Yes Constitutional: Positive: Negative Eyes: Positive: Negative Respiratory: Positive: Cough - with no sob. Cardiovascular: Positive: Negative Neurological: Positive: Negative Is Patient Immunocompromised?: Yes - RA Physical Exam Triage Information Reviewed: Yes Appearance: Well-Appearing, No Pain Distress Vital Signs: Initial Vital Signs Temp 98 F 04/28/18 10:20 Pulse 100 04/28/18 10:20 Resp 20 04/28/18 10:20 BP 191/90 04/28/18 10:20 Pulse Ox 96 04/28/18 10:20 Vital Signs Reviewed: Yes ENT: Positive: Pharynx normal Neck: Positive: No Lymphadenopathy Respiratory: Positive: Lungs clear, Normal breath sounds, No respiratory distress. Negative: Crackles Cardiovascular Exam: Normal Musculoskeletal: Positive: No Edema Neurological: Positive: Alert Psychological Exam: Normal UC Diagnostic Evaluation - Laboratory O2 Sat by Pulse Oximetry: 96 Respiratory Course/Dx - Course Course Of Treatment: viral etiology and we discussed antibiotic usage and not being effective if this is viral. we discussed risks of bacterial resistance. we also discussed her elevated blood pressure. she has no cardiac or respiratory signs but she will f/u w/ her pcp about this. - Differential Dx/Diagnosis Differential Diagnosis/HQI/PQRI: Asthma, Bronchitis, CHF, Lower Resp Infection Provider Diagnoses: viral bronchitis; elevated blood pressure Discharge - Sign-Out/Discharge Documenting (check all that apply): Patient Departure All imaging exams completed and their final reports reviewed: No Studies - Discharge Plan Condition: Good Disposition: HOME Prescriptions: Azithromycin TAB* [Zithromax TAB (Z-ZENOBIA) 250 mg #6 tabs] 2 tab PO .TODAY, THEN 1 DAILY #1 zenobia Patient Education Materials: Acute Bronchitis (ED) Referrals: Lizandro Esquivel MD [Primary Care Provider] - Additional Instructions: I think you have a viral infection causing you to cough. antibiotics are not recommended for this and you and I have discussed drug resistance, risk of antibiotic overuse, and increased risk of Gastrointestinal infection. I am prescribing antibiotics as you have asked but you should know it may not help your symptoms. please follow the cdc guidelines if you have any questions. - Billing Disposition and Condition Condition: GOOD Disposition: Home
[2018-04-28 12:42] VITALS: BP 142/89
== END 2018-04-28 12:43 | disposition home or self-care (01) ==
LOC: UCEAST 10:16
DX: J20.8 Acute bronchitis due to other specified organisms (principal); R03.0 Elevated blood-pressure reading, without diagnosis of hypertension; I10 Essential (primary) hypertension; M06.9 Rheumatoid arthritis, unspecified; Z88.1 Allergy status to other antibiotic agents; Z88.8 Allergy status to other drugs, medicaments and biological substances
CPT/HCPCS: 99211; G0463

== ENCOUNTER 2019-03-14 10:51 | Day surgery (SDC) | payer MEDICARE ==
[~2019-03-14 10:51] MED LIST: Buffered Lidocaine 1% SYRIN* 1 ML/SYRINGE INTRADERM ONE
[2019-03-14] MEDS ORDERED: fentaNYL* 50 MCG/ML 2 ML VIAL (100 MCG VIAL) ONE (12:41)
[2019-03-14] MEDS ORDERED: Midazolam* 1 MG/ML 2 ML VIAL (2 MG) ONE (12:41)
[2019-03-14] MEDS ORDERED: Lidocaine 2% PF * 5 ML VIAL ONE (13:05)
[2019-03-14] MEDS ORDERED: Propofol* 10 MG/ML 20 ML BTL ONE (13:05)
[2019-03-14] MEDS ORDERED: Cyclopentolate 1% OPTH.SOL* 2 ML BTL ONE (14:21)
[2019-03-14] MEDS ORDERED: Neomycin/Polymy/Dex OPHTH.OIN* 3.5 GM ONE (14:21)
[2019-03-14] MEDS ORDERED: Lidocaine 1% MPF ** 5 ML VIAL ONE (14:21)
[2019-03-14] MEDS ORDERED: Ketorolac 0.5% OPHTH (NF) 0.5 % 5 ML BTL ONE (14:21)
[2019-03-14] MEDS ORDERED: Phenylephrine OPHTH SOL 2.5%* 2 ML ONE (14:21)
[2019-03-14] MEDS ORDERED: Tetracaine 0.5% OPTH.SOL 4 ML* 1 DROP BTL ONE (14:21)
[2019-03-14] MEDS ORDERED: Tropicamide 1% OPTH.SOL* BTL ONE (14:21)
[2019-03-14 14:30] VITALS: BP 141/71
[2019-03-14] MEDS ORDERED: Phenylephr/Ketorolac 1%/0.3% OPH DROP BTL ONE (15:25)
--- NOTE | 2019-03-14 22:17 | OP ---
DATE OF OPERATION: 03/14/19 - [facility] DATE OF : 34 SURGEON: Dr. Hilario Brock SENIOR TECHNICAL SPECIALIST: None. ANESTHESIA: Topical with intravenous sedation. PRE-OP DIAGNOSIS: Cataract, left eye with small pupil. POST-OP DIAGNOSIS: Cataract, left eye with small pupil. OPERATIVE PROCEDURE: Phacoemulsification and cataract extraction with posterior chamber intraocular lens implant. COMPLICATIONS: None. ESTIMATED BLOOD LOSS: None. DESCRIPTION OF PROCEDURE: The patient was brought to the operating room and given intravenous sedation. A drop of tetracaine was placed in her left eye. The patient was prepped and draped in the usual sterile fashion for ophthalmic surgery and attention was directed to the left eye where a speculum was placed. A paracentesis was created at the 5:30 position. 0.1 cc of 1% preservative-free lidocaine was injected into the anterior chamber followed by DisCo-Visc. The eye was digitally stabilized while a 2.75 mm keratome was used to create a triplanar clear corneal incision at the 3 o'clock position. It was noted that the pupil failed to dilate further than approximately 3.5 mm. Thus, Omidria was added to the irrigating solution. A Malyugin ring was introduced on surgical field. The Malyugin ring was placed into the eye to hold the pupil open. A continuous curvilinear capsulorrhexis was created with a cystotome and Utrata forceps. BSS on a cannula was used to hydrodissect the lens from the capsule. Phacoemulsification was performed in a ygjmba-ruc-bbitldd technique to create 4 fragments which were removed. Residual cortical material was removed with irrigation and aspiration. DisCoVisc was used to inflate the capsular bag. An [id number] 24.5 diopter lens was inserted into the capsular bag. DisCoVisc was removed from posterior to the lens. Further DisCoVisc was placed anterior to the lens. The Malyugin ring was atraumatically removed from the eye. The remaining DisCoVisc was removed from the eye. BSS on a cannula was used to hydrate the corneal stroma and seal the wound. At the end of the case, the pupil was slightly irregular from the Malyugin ring, but more or less round and measured approximately 3 mm. The eye pressure appeared normal and the wound was watertight. The lens was centered and stable. The speculum was removed from the eye. Topical Maxitrol ointment was placed on the surface of the eye. The eye was closed, patched and shielded, and the patient was sent to the recovery room in stable condition with postop instructions and followup appointment given. [id number]/CPS #: [id number] MTDD
== END 2019-03-14 14:07 | disposition home or self-care (01) ==
LOC: OREAST 10:51
PROVIDERS: ATTEND Ophthalmology
DX: Z01.818 Encounter for other preprocedural examination (principal); H25.13 Age-related nuclear cataract, bilateral; M19.90 Unspecified osteoarthritis, unspecified site; M06.00 Rheumatoid arthritis without rheumatoid factor, unspecified site
CPT/HCPCS: A9270-GY; C9447; J2250; J2704; J3010; V2632

== ENCOUNTER 2019-04-18 09:27 | Emergency (ER) | payer MEDICARE, MEDICAID ==
--- OUTSIDE RECORDS SUMMARY | 2019-04-18 09:33 | XMS REPORT | Continuity of Care Document ---
:1930 External Reference #:[id number] Author Name Lizandro Dudley M.D. Address [address] [place] [address] Care Team Providers Name Role Phone Weston Mcclain, Lizandro Care Team Information Coil Inspector [phone] Problems Active Problems Provider Date Essential hypertension Moreno Villalobos MD Onset: 03/07/2009 Sensorineural hearing loss Lizandro Dudley M.D. Onset: 03/27/2019 Social History Type Date Description Comments Sex Unknown Tobacco Use Start: Unknown Patient has never smoked Smoking Status Reviewed: 03/26/19 Patient has never smoked Allergies, Adverse Reactions, Alerts Active Allergies Reaction Severity Comments Date Enbrel 03/27/2019 Cipro 03/27/2019 Humira 03/27/2019 Doxycycline 03/27/2019 Medications Active Medications SIG Qnty Indications Ordering Provider Date Aspir-81 daily Unknown Methotrexate Unknown Folic Acid Take One Tablet Unknown 1mg Tablets By Mouth Every Day Omeprazole Take One Capsule Unknown 20mg Capsules DR By Mouth Every Day as Needed Hydromorphone HCL Take One Tablet Unknown 4mg By Mouth Every 4 Tablets Hours as Needed For Severe Pain Maximum Daily Dose Six Tablets Lisinopril-Hydrochlorot Take One Tablet Unknown hiazide By Mouth Every 20-25mg Tablets Day Immunizations Description No Information Available Vital Signs Date Vital Result Comment 03/27/2019 2:14pm Weight 158.00 lb Weight 71.669 kg Height 62 inches 5'2" Height in cm's 157.5 cm BMI (Body Mass Index) 28.9 kg/m2 03/07/2009 3:05pm BP Systolic 148 mmHg BP Diastolic 83 mmHg Heart Rate 74 /min Respiratory Rate 16 /min Results Description No Information Available Procedures Description No Information Available Medical Devices Description No Information Available Encounters Type Date Location Provider Dx Diagnosis Office Visit 03/27/2019 Presley,Ofelia Contreras H90.5 Unspecified 2:15p 06/21/07 Johny Dudley sensorineural hearing loss Assessments Date Code Description Provider 03/27/2019 H90.5 Unspecified sensorineural hearing loss Lizandro Dudley M.D. Plan of Treatment No Information Available Functional Status Description No Information Available Mental Status Description No Information Available Referrals Description No Information Available
--- OUTSIDE RECORDS SUMMARY | 2019-04-18 09:33 | XMS REPORT | Continuity of Care Document ---
:1930 External Reference #:[id number] Author Name Hilario Brock M.D. Address [address] [place] [address] Care Team Providers Name Role Phone Lizandro Lopez M.D. Care Team Information Executive Producer [employer] [phone] Problems Description No Information Available Social History Type Date Description Comments Sex Unknown ETOH Use Denies alcohol use Tobacco Use Start: Unknown Patient has never smoked Smoking Status Reviewed: 03/13/19 Patient has never smoked Allergies, Adverse Reactions, Alerts Active Allergies Reaction Severity Comments Date Cipro 01/09/2019 Humira 01/09/2019 Doxycycline 01/09/2019 Enbrel 02/22/2019 Medications Active Medications SIG Qnty Indications Ordering Provider Date Vigamox 1 drop left eye 6ml Hilario Brock, 03/07/2019 0.5% Solution four times a day, M.D. start drops morning of surgery Ketorolac Tromethamine 1 drops left eye 10ml Hilario Brock, 03/07/2019 0.5% twice a day M.D. Solution Pred Forte one drop four 20ml Hilario Brock, 03/07/2019 1% Suspension times a day left M.D. eye x 1 week, then taper as directed Lisinopril-Hydrochlorot Seirra STODDARD, hiazide Lizandro 20-25mg Tablets Omeprazole Sierra STODDARD, 20mg Capsules DR Bone Hydromorphone HCL Sierra STODDARD, 4mg Lizandro Tablets Miralax Unknown 3350NF Packet Ondansetron Unknown 4mg Tablets Dispers Immunizations Description No Information Available Vital Signs Date Vital Result Comment 02/22/2019 1:33pm Intraocular Pressure Right Eye 15 mmHg Intraocular Pressure Left Eye 15 mmHg 01/09/2019 1:48pm Intraocular Pressure Right Eye 15 mmHg Intraocular Pressure Left Eye 15 mmHg Results Description No Information Available Procedures Date Code Description Status 02/22/2019 85822 Ophthalmic Biometry By Partial Coherence Interferometry Completed W/Intra 02/22/2019 31058 Eye Exam Est Intermediate Completed 01/09/2019 65415 Oct Retina Completed 01/09/2019 42905 Eye Exam New Intermediate Completed Medical Devices Description No Information Available Encounters Description No Information Available Assessments Date Code Description Provider 03/15/2019 Z48.89 Encounter for other specified surgical Hilario Brock M.D. aftercare 02/22/2019 H25.813 Combined forms of age-related cataract, Hilario Brock M.D. 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 [facility] Cdrlpm9103/21/2019 9:45 am - Hilario Brock M.D. [facility] Enrfvi0803/15/2019 - Hilario Brock M.D.Z48.89 Encounter for other specified surgical aftercareComments:The patient was seen post-operatively one day following surgery. The patient was advised that the eye tolerated the surgery well without complications. Patient was given eye drop schedule and implant card.The patient was told to wear an eye shield QHS for one week and sunglasses daily. The patient was also advised to contact us immediately if new symptoms or visual changes are noted such as pain, worsening redness, flashes, floaters or decrease in vision.Follow up:The patient is to return in one week to follow up after cataract surgery and sooner if needed. Pt can call if vision not improving in 2 days Functional Status Description No Information Available Mental Status Description No Information Available Referrals Description No Information Available
--- OUTSIDE RECORDS SUMMARY | 2019-04-18 09:33 | XMS REPORT | Continuity of Care Document ---
:1930 External Reference #:[id number] Author Name Perez Reinoso, OD Address [address] [place] [address] Care Team Providers Name Role Phone Lizandro Lopez M.D. Care Team Information Exhibits Manager [phone] Problems Description No Information Available Social History Type Date Description Comments Sex Unknown ETOH Use Denies alcohol use Tobacco Use Start: Unknown Patient has never smoked Smoking Status Reviewed: 03/27/19 Patient has never smoked Allergies, Adverse Reactions, Alerts Active Allergies Reaction Severity Comments Date Cipro 01/09/2019 Humira 01/09/2019 Doxycycline 01/09/2019 Enbrel 02/22/2019 Medications Active Medications SIG Qnty Indications Ordering Provider Date Ketorolac Tromethamine one drop twice a 5ml Perez Reinoso, OD 03/28/2019 0.4% day both eyes Solution Pred Forte one drop four 20ml Hilario Brock, 03/07/2019 1% Suspension times a day left M.D. eye x 1 week, then taper as directed Lisinopril-Hydrochlorot Sierra STODDARD, hiazide Lizandro 20-25mg Tablets Omeprazole Sierra STODDARD, 20mg Capsules DR Bone Hydromorphone HCL Sierra STODDARD, 4mg Lizandro Tablets Miralax Unknown 3350NF Packet Ondansetron Unknown 4mg Tablets Dispers History Medications Vigamox 1 drop left eye 6ml Hilario Brock, 03/07/2019 - 0.5% Solution four times a day, M.D. 03/28/2019 start drops morning of surgery Ketorolac Tromethamine 1 drops left eye 10ml Hilario Brock, 03/07/2019 - twice a day M.D. 03/28/2019 0.5% Solution Immunizations Description No Information Available Vital Signs Date Vital Result Comment 03/28/2019 10:43am Intraocular Pressure Right Eye 16 mmHg Intraocular Pressure Left Eye 17 mmHg 03/22/2019 9:58am Intraocular Pressure Right Eye 16 mmHg Intraocular Pressure Left Eye 18 mmHg Results Description No Information Available Procedures Date Code Description Status 03/14/2019 73922 Extracapsular Cataract Removal W/Insertion Of Intraocular Completed Lens pr 02/22/2019 23855 Ophthalmic Biometry By Partial Coherence Interferometry Completed W/Intra 02/22/2019 51731 Eye Exam Est Intermediate Completed 01/09/2019 28352 Oct Retina Completed 01/09/2019 13209 Eye Exam New Intermediate Completed Medical Devices Description No Information Available Encounters Description No Information Available Assessments Date Code Description Provider 03/28/2019 Z96.1 Presence of intraocular lens Perez Reinoso, OD 03/22/2019 Z48.89 Encounter for other specified surgical Hilario Brock M.D. aftercare 03/15/2019 Z48.89 Encounter for other specified surgical Hilario Brock M.D. aftercare 03/14/2019 H25.12 Age-related nuclear cataract, left eye Hilario Brock M.D. 02/22/2019 H25.813 Combined forms of age-related cataract, Hilario Brock M.D. 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
--- OUTSIDE RECORDS SUMMARY | 2019-04-18 09:33 | XMS REPORT | Summary of Care ---
:1930 Author Organization [facility] Address [address] [place] [address] Care Team Providers Name Role Phone Weston, Lizandro Primary Care Provider Reason for Visit Reason Comments Hearing Aid Check Encounter Details Date Type Department Care Team Description 04/05/2019 Office Visit [facility] - Subhash Peres, Sensorineural hearing Kimmell AuD loss, bilateral (Primary [address] [place]) [place] [address] [place] [address] [phone] Allergies Active Allergy Reactions Severity Noted Date Comments Copd Unknown Reaction 07/01/2007 Adalimumab Unknown Reaction 06/29/2007 documented as of this encounter (statuses as of 04/05/2019) Medications Medication Sig Dispensed Refills Start Date End Date Status ASPIRIN 81 MG PO TABS DAILY. 0 Active HYDROcodone-acetaminoph 2 EVERY FOUR 0 Active en (NORCO) 10-325 MG PO HOURS NEEDED TABS Mdd 6 Methotrexate 2.5 MG Take 2.5 mg by 0 Active Oral Tab mouth EVERY 7 DAYS. 3 tabs Q 7 days CALCIUM 500 PO Take by mouth 0 Active TWICE DAILY. 2 tablets Ibandronate Sodium Take 1 Tab by 3 3 11/27/2008 Active (BONIVA) 150 MG Oral mouth EVERY TabIndications: THIRTY DAYS. Take Osteoporosis, 60 minutes before unspecified the first food of the day; remain upright for 60 minutes after taking. lisinopril-hydrochlorot Take 1 Tab by 90 3 01/21/2009 Active hiazide (ZESTORETIC, mouth DAILY. PRINZIDE) 20-12.5 MG Oral Tab foliC acid 1 MG Oral Take 1 Tab by 100 Tab 6 10/30/2010 Active TabIndications: mouth DAILY. Rheumatoid arthritis(714.0) documented as of this encounter (statuses as of 04/05/2019) Active Problems Problem Noted Date Degenerative lumbar spinal stenosis 04/02/2010 Osteoporosis, unspecified 11/27/2008 Acquired absence of uterus 05/01/2008 Unspecified essential hypertension 06/29/2007 Anxiety state, unspecified 06/29/2007 Rheumatoid arthritis(714.0) 06/29/2007 Polymyalgia rheumatica 06/29/2007 documented as of this encounter (statuses as of 04/05/2019) Immunizations Name Administration Dates Next Due Influenza Vaccine Whole 05/22/2004 Tuberculin Skin Test 06/21/1995 dT Vaccine 06/21/2004, 05/21/2004, 02/19/2003, 06/21/1995 documented as of this encounter Social History Tobacco Use Types Packs/Day Years Used Date Never Smoker Alcohol Use Drinks/Week oz/Week Comments No Sex Assigned at Date Recorded Not on file Job Start Date Occupation Industry Not on file Not on file Not on file Travel History Travel Start Travel End No recent travel history available. documented as of this encounter Last Filed Vital Signs Not on filedocumented in this encounter Progress Notes Subhash Peres AuD - 04/05/2019 9:45 AM EDTThe patient was unaccompanied to today's hearing aid consultation. 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 The patient notes that her hearing loss causes difficulty communicating when at sikhism and when withher family. She is interested in a device that can provide assistance in all aspects of life but does not have a high monetary amount. I discussed the different options available to the patient. I believe she could benefit from Getting-ineo M50/70-R devices as they would be easy to integrate into her current daily routine, are technologically advanced enough to handle her lifestyle and would save her money over time as she would not have to purchase batteries. The patient was provided information pertaining to the M devices and the associated costs and was instructed to discuss financing with her children. She will contact the office is she wishes to pursue amplification with [facility]. Measurements obtained: Rafael Salas M-RT in [place] White #1 moderate receivers with medium vented domes. Medical clearance already provided by [facility]. Outside results to be sent to scanning. documented in this encounter Plan of Treatment Name Type Priority Associated Diagnoses Order Schedule HEARING AID RECHECK Procedures Routine Sensorineural Hearing Ordered: 04/05 Loss, Bilateral Health Maintenance Due Date Last Done Comments DEPRESSION SCREENING 1944 HIV SCREENING 02/02/1945 ZOSTER IMMUNIZATION SERIES (1 of 02/02/1982 2) FALL RISK ASSESSMENT 02/02/1997 PNEUMOCOCCAL 65+YRS (1 of 2 - 02/02/1997 PCV13) INFLUENZA VACCINE (#1) 2019 05/22/2004 HPV IMMUNIZATION SERIES Aged Out No longer eligible based on patient's age to complete this topic MENINGOCOCCAL VACCINE IMM Aged Out No longer eligible based on patient's age to complete this topic documented as of this encounter Results Not on filedocumented in this encounter Visit Diagnoses Diagnosis Sensorineural hearing loss, bilateral - Primary documented in this encounter Insurance Payer Benefit Plan / Subscriber ID Effective Dates Phone Address Type Group [employer] xxxxxxxxxxxx 2015-[facility] [employer] MEDICARE MEDICARE BLUE t ADVANTAGE PPO ([phone]) MEDICAID [facility] xxxxxxxx 2019-Pres Medicaid [place] MEDICAID ent (Home) [place], [place] [phone] [id number] (Work) documented as of this encounter
--- OUTSIDE RECORDS SUMMARY | 2019-04-18 09:33 | XMS REPORT | Continuity of Care Document ---
:1930 External Reference #:[id number] Author Name Hilario Brock M.D. Address [address] [place] [place] [address] Care Team Providers Name Role Phone Lizandro Lopez M.D. Care Team Information Scale Installer [phone] Problems Description No Information Available Social History Type Date Description Comments Sex Unknown ETOH Use Denies alcohol use Tobacco Use Start: Unknown Patient has never smoked Smoking Status Reviewed: 03/21/19 Patient has never smoked Allergies, Adverse Reactions, [...] Available Vital Signs Date Vital Result Comment 03/22/2019 9:58am Intraocular Pressure Right Eye 16 mmHg Intraocular Pressure Left Eye 18 mmHg 02/22/2019 1:33pm Intraocular Pressure Right Eye 15 mmHg Intraocular Pressure Left Eye 15 mmHg Results Description No Information Available Procedures Date Code Description Status 03/14/2019 98383 Extracapsular Cataract Removal W/Insertion Of Intraocular Completed Lens pr 02/22/2019 48228 Ophthalmic Biometry By Partial Coherence Interferometry Completed W/Intra 02/22/2019 25899 Eye Exam Est Intermediate Completed 01/09/2019 93982 Oct Retina Completed 01/09/2019 73667 Eye Exam New Intermediate Completed Medical Devices Description No Information Available Encounters Description No Information Available Assessments Date Code Description Provider 03/22/2019 Z48.89 Encounter for other specified surgical [...] H35.372 Puckering of macula, left eye Perez Reinoso, OD 01/09/2019 H52.4 Presbyopia Perez Reinoso, ALCON Plan of Treatment Future Appointment(s):04/28/2019 8:45 am - Perez Reinoso, OD at [facility]/2019 10:30 am - Perez Reinoso, OD at [facility] [place]/22/2019 - Hilario Brock M.D.Z48.89 Encounter for other [...] or visual changes are noted such as pain , worsening redness, flashes, floaters or decrease in vision.Follow up:The patient is to return in one week to follow up after cataract surgery and sooner if needed. Functional Status Description No Information Available Mental Status Description No Information Available Referrals Description No Information Available
--- OUTSIDE RECORDS SUMMARY | 2019-04-18 09:34 | XMS REPORT | Continuity of Care Document ---
:1930 External Reference #:[id number] Author Name Lizandro Ontiveros MD Address [address] [place] [address] Care Team Providers Name Role Phone Shweta Dickerson - Family Medicine Care Team Information Practice Clinician [phone] Lizandro Ontiveros MD - Family Care Team Information Practice Clinician Medicine Problems Active Problems Provider Date Acute vascular insufficiency of intestine Megan Jimenez M.D. Onset: 2010 Essential hypertension Megan Jimenez M.D. Onset: 03/30/2011 Vitamin D deficiency Megan Jimenez M.D. Onset: 09/21/2011 Adjustment disorder with depressed mood Megan Jimenez M.D. Onset: 2011 Blood chemistry abnormal Megan Jimenez M.D. Onset: 09/21/2011 Nausea and vomiting Megan Jimenez M.D. Onset: 10/05/2011 Gastroesophageal reflux disease Lizandro Esquivel M.D. Onset: 06/28/2015 Arthralgia of the pelvic region and thigh Lizandro Esquivel M.D. Onset: Shoulder joint pain Lizandro Esquivel M.D. Onset: 08/19/2015 Urinary incontinence Lizandro Esquivel M.D. 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 Social History Type Date Description Comments Sex Unknown Tobacco Use Start: Unknown Never Smoked Cigarettes ETOH Use Denies alcohol use Tobacco Use Start: Unknown Patient has never smoked Smoking Status Reviewed: 08/04/18 Patient has never smoked Allergies, Adverse Reactions, Alerts Active Allergies Reaction Severity Comments Date Lidoderm 02/18/2009 Adalimumab 03/31/2010 Cipro 03/30/2011 Enbrel 03/30/2011 Humira 03/30/2011 Doxycycline Nausea 12/07/2018 Medications Active Medications SIG Qnty Indications Ordering Date Provider Jaiden ac 5 ml every 4-6 118ml Subha Colton, 08/30/2018 hours as needed INTENSIVIST 100-10mg/5ML Syrup Fentanyl apply 1 patch to 10units M06.00 Subha Colton, 08/15/2018 25mcg/HR clean, dry skin INTENSIVIST Patches 72HR for 72 hours then remove, dispose of properly and apply a new patch on a different, clean dr Albuterol Sulfate inhale the 75ml Subha Colton, 07/18/2018 contents of one INTENSIVIST (2.5mg/3ML) 0.083% vial via Nebulizer nebulizer four times a day as directed Methotrexate 7 tabs weekly. 35tabs Lizandro Gupta 04/07/2018 2.5mg MD [place] Tablets Miralax 17 gm powder in 1Bottle Caprice CSven 08/19/2015 3350NF Powder fluid daily or as TRISTIN Griffin needed Ondansetron 1 by mouth every 30tabs Lizandro Laguna 07/16/2014 4mg Tablets 8 hours as needed Johny Esquivel Dispers nausea Omeprazole Take One Capsule 30caps K21.9 Lizandro Laguna 05/29/2014 20mg By Mouth Every Johny Esquivel Capsules DR Day as Needed Lisinopril-Hydrochlor Take One Tablet 90tabs I10 Lizandro Laguna 09/21/2011 othiazide By Mouth Every Johny Esquivel 20-25mg Day Tablets Folic Acid Take One Tablet 90tabs Caprice Lund 1mg Tablets By Mouth Every TRISTIN Griffin Aspir-81 1 po qd Unknown 81mg Tablets Hydromorphone HCL 1 every 4 hours 180tabs Subha Segura, 4mg as needed for INTENSIVIST Tablets severe pain. Immunizations CPT Code Status Date Vaccine Lot # [id number] Given 03/02/2018 High-Dose, Influenza Virus Vacccine-fluzone 65 and older 71150 Given 03/29/2017 High-Dose, Influenza Virus Vacccine-fluzone 65 and older 70353 Given 08/12/2016 Pneumococcal Immunization 03107 Given 05/22/2016 High-Dose, Influenza Virus Vacccine-fluzone 65 and older 96075 Given 07/11/2015 Pneumococcal Conjugate Vacc-13 13936 Given 04/01/2015 High-Dose, Influenza Virus Vacccine-fluzone 65 and older 37747 Given 11/05/2014 Tdap Tetanus, W Pertussis [id number] 72665 Given 03/27/2013 DO Not Use Split Influenza Virus Vaccine 95903 Given 02/12/2011 DO Not Use Split Influenza Virus Vaccine Vital Signs Date Vital Result Comment 03/01/2019 3:50pm BP Systolic 118 mmHg BP Diastolic 70 mmHg Heart Rate 86 /min Body Temperature 97.9 F Respiratory Rate 16 /min Height 62.5 inches 5'2.50" Weight 157.00 lb BMI (Body Mass Index) 28.3 kg/m2 12/07/2018 1:34pm BP Systolic 132 mmHg BP Diastolic 64 mmHg Heart Rate 94 /min Body Temperature 98.4 F Respiratory Rate 16 /min Height 62.5 inches 5'2.50" Weight 161.00 lb BMI (Body Mass Index) 29.0 kg/m2 Results Test Date Facility Test Result H/L Range Note Laboratory test 12/07/2018 [facility] C-Reactive 11 mg/L High 0-10 1 finding [address] [facility] Protein, [place] [address] (607)- - Antinuclear Antibodies, Ifa Negative 2 Rheumatoid 12/07/2018 [facility] Ra Latex <10.0 IU/mL 0.0-13.9 Arthritis Factor [address] [facility]. ([facility]) [place] [address] (607)- - CBC Electronic 12/07/2018 [facility] WBC 9.21 4.0-10.0 ([facility]) (607)- - RBC 3.49 Low 3.93-6.0 Hemoglobin ([facility]ma/CMC/CTX) 12.0 g/dL 12.0-17.0 Hematocrit ([facility]ma/CMC/CTX) 35.5 % 35.0-50.0 Mean Corpuscular Vol 101.7 fL High 80-95 Mean Corpuscular Hemoglobin 34.4 pg High 25.6-32.2 Mean Corpuscular Hemo Concen 33.8 g/dL 32.2-36.0 Platelets 242 10^3/ul 163-400 RDW-CV 13.5 11.6-14.4 Mean Platelet Volume 9.1 fL 8.0-12.4 Absolute Neutrophils BLD 7.06 High 1.56-6.13 Absolute Lymphocytes 1.35 1.18-3.74 Absolute Monocytes BLD Auto 0.62 0.24-0.82 Absolute Eos Blood 0.12 0.04-0.54 Absolute Basophils 0.04 0.01-0.08 Neutrophil % 76.7 % High 34.0-70.0 Lymph% 14.7 % Low 20.0-52.0 Monocytes % 6.7 % 5.0-12.0 Eos % 1.3 % 0.7-7.0 Basophil% 0.4 % 0-1.2 Comprehensive Metabolic 12/07/2018 [facility](fma) Sodium 140 mEq/L 134-149 Prof Potassium 3.9 mEq/L 3.6-5.5 Chloride 99 mEq/L 94-112 Carbon Dioxide 28 mEq/L 21-32 Glucose 145 mg/dL High 70-105 BUN 20 mg/dL 6-26 Creatinine 0.8 mg/dL 0.6-1.4 BUN/Creat Ratio 25.0 CALC 8.0-36.0 Calcium 9.3 mg/dL 8.6-10.2 Total Protein 7.0 g/dL 6.4-8.3 Albumin 4.5 g/dL 3.8-5.5 Globulin 2.5 g/dL 2.0-4.8 A/G Ratio 1.8 CALC 0.6-2.3 Alk. Phosphatase 134 U/L High 30-110 Alt (SGPT) 10 U/L 7-35 Ast (Sgot) 15 U/L 5-34 Total Bilirubin 0.4 mg/dL 0.2-1.3 GFR Non- >60 ml/min/1.73m^ >=60 GFR >60 ml/min/1.73m^ >=60 1 Please note reference interval change 2 Negative <1:80 Borderline 1:80 Positive >1:80 Procedures Date Code Description Status 03/19/2011 78668028 Colonoscopy Completed 04/03/2010 13647204 Mammogram Completed 03/10/2010 18865010 Mammogram Completed 05/21/2008 220826920 Bone Mineral Density Test Completed Medical Devices Description No Information Available Encounters Type Date Location Provider Dx Diagnosis Office Visit 12/07/2018 Main Office Lizandro Gupta M06.00 Rheumatoid arthritis 2:10p MD [place] without rheumatoid factor, unsp site I10 Essential (primary) hypertension Assessments Date Code Description Provider 03/01/2019 Z01.818 Encounter for other preprocedural Lizandro Ontiveros MD examination 03/01/2019 M06.00 Rheumatoid arthritis without rheumatoid Lizandro Ontiveros MD factor, unspecified 12/07/2018 M06.00 Rheumatoid arthritis without rheumatoid Lizandro Ontiveros MD factor, unspecified 12/07/2018 I10 Essential (primary) hypertension Lizandro Ontiveros MD Plan of Treatment Future Appointment(s):06/08/2019 1:20 pm - Lizandro Ontiveros MD at Main [place]/01/2019 - Lizandro Ontiveros MDZ01.818 Encounter for other preprocedural xowwuwqulvdU77.00 Rheumatoid arthritis without rheumatoid factor, unspecifiedAllComments:Medication Management Patient Understands medications she 's taking? Yes No Are there Barriers to Adherence? Yes No Has the patient been asked about herbal supplements and therapies, and OTC meds? Yes No Functional Status Description No Information Available Mental Status Description No Information Available Referrals Description No Information Available
--- OUTSIDE RECORDS SUMMARY | 2019-04-18 09:34 | XMS REPORT | Continuity of Care Document ---
:1930 External Reference #:[id number] Author Name Hilario Brock M.D. Address [address] [place] [address] Care Team Providers Name Role Phone Lizandro Lopez M.D. 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 [phone] Problems Description No Information Available Social History Type Date Description Comments Sex Unknown ETOH Use Denies alcohol use Tobacco Use Start: Unknown Patient has never smoked Smoking Status Reviewed: 02/22/19 Patient has never smoked Allergies, Adverse Reactions, Alerts Active Allergies Reaction Severity Comments Date Cipro 01/09/2019 Humira 01/09/2019 Doxycycline 01/09/2019 Enbrel 02/22/2019 Medications Active Medications SIG Qnty Indications Ordering Provider Date Lisinopril-Hydrochlorothiazide Lizandro Esquivel MD 20-25mg Tablets Omeprazole Lizandro Esquivel MD 20mg Capsules DR Hydromorphone HCL Lizandro Esquivel MD 4mg Tablets Miralax 3350NF Unknown Packet Ondansetron Unknown 4mg Tablets Dispers Immunizations Description No Information Available Vital Signs Date Vital Result Comment 02/22/2019 1:33pm Intraocular Pressure Right Eye 15 mmHg Intraocular Pressure Left Eye 15 mmHg 01/09/2019 1:48pm Intraocular Pressure Right Eye 15 mmHg Intraocular Pressure Left Eye 15 mmHg Results Description No Information Available Procedures Date Code Description Status 02/22/2019 61931 Ophthalmic Biometry By Partial Coherence Interferometry Completed W/Intra 02/22/2019 27616 Eye Exam Est Intermediate Completed 01/09/2019 87433 Oct Retina Completed 01/09/2019 53967 Eye Exam New Intermediate Completed Medical Devices Description No Information Available Encounters Description No Information Available Assessments Date Code Description Provider 02/22/2019 H25.813 Combined forms of age-related cataract, [...] Presbyopia Perez Reinoso, OD Plan of Treatment 02/22/2019 - Hilario Brock M.D.H25.813 Combined forms of age-related cataract , bilateralComments:Risks, benefits and alternatives to cataract extraction and posterior chamber intraocular lens placement explained, understood and accepted including but not limited to: re-operation, infection, retinal detachment, glaucoma, bleeding in the eye, retained lens material, corneal or macular edema , need for glasses, poor vision and other.Follow up:Schedule patient for the next available cataract surgery date.H35.372 Puckering of macula, left eyeH35.363 Drusen (degenerative) of macula, bilateral Functional Status Description No Information Available Mental Status Description No Information Available Referrals Description No Information Available
[2019-04-18 09:39] VITALS: BP 164/87
--- NOTE | 2019-04-18 10:28 | UC ---
Throat Pain/Nasal Cam HPI - HPI Summary HPI Summary: 89-year-old female who complains of a sore throat watery eyes and runny nose over the past couple of days. - History of Current Complaint Chief Complaint: UCRespiratory Stated Complaint: sore THROAT Time Seen by Provider: 04/18/19 10:22 Hx Obtained From: Patient Hx Last Menstrual Period: NA ?: No Onset/Duration: Gradual Onset Severity: Mild Pain Intensity: 0 Cough: None Associated Signs & Symptoms: Positive: Nasal Discharge - Clear nasal coryza. - Allergies/Home Medications Allergies/Adverse Reactions: Allergies Allergy/AdvReac Type Severity Reaction Status Date / Time adalimumab [From Humira] Allergy Unknown Verified 04/18/19 09:33 Reaction Details ciprofloxacin [From Cipro] Allergy Unknown Verified 04/18/19 09:33 Reaction Details doxycycline Allergy Vomiting Verified 04/18/19 09:33 etanercept [From Enbrel] Allergy Unknown Verified 04/18/19 09:33 Reaction Details lidocaine [From Lidoderm] Allergy Unknown Verified 04/18/19 09:33 Reaction Details PMH/Surg Hx/FS Hx/Imm Hx - Additional Past Medical History Additional PMH: Rheumatoid arthritis Previously Healthy: Yes Cardiovascular History: Hypertension Other History Of: Negative For: Anticoagulant Therapy - Surgical History Surgical History: Yes Surgery Procedure, Year, and Place: appendectomy, hysterectomy, T&A. Lumbar decompression L4/5. TRIAL DCS. D&C - Family History Known Family History: Positive: Unknown - Pt doens't know any FMHX, Other - Negative: malignant hyperthermia, anesthesia reaction Family History: NON CONTRIBUTORY - Social History Occupation: Retired Alcohol Use: None Substance Use Type: None Substance Use Comment - Amount & Last Used: HYDROMORPHONE AND FENTANYL PATCH Smoking Status (MU): Never Smoked Tobacco Have You Smoked in the Last Year: No - Immunization History Most Recent Influenza Vaccination: 2018 Most Recent Tetanus Shot: in the past Most Recent Pneumonia Vaccination: 2016 Review of Systems All Other Systems Reviewed And Are Negative: Yes ENT: Positive: Sore Throat, Nasal Discharge Is Patient Immunocompromised?: No Physical Exam Triage Information Reviewed: Yes Appearance: Well-Appearing, No Pain Distress, Well-Nourished Vital Signs: Initial Vital Signs Temp 97.5 F 04/18/19 09:35 Pulse 88 04/18/19 09:35 Resp 18 04/18/19 09:35 BP 164/87 04/18/19 09:35 Pulse Ox 98 04/18/19 09:35 Vital Signs Reviewed: Yes Eyes: Positive: Conjunctiva Clear ENT: Positive: Pharyngeal erythema - Minimal pharyngeal erythema., Nasal congestion, Nasal drainage - Clear nasal coryza, TMs normal, Uvula midline Neck: Positive: Supple, Nontender, No Lymphadenopathy Respiratory: Positive: Lungs clear, Normal breath sounds, No respiratory distress, No accessory muscle use Cardiovascular: Positive: RRR, No Murmur, Pulses Normal, Brisk Capillary Refill Musculoskeletal Exam: Normal Neurological Exam: Normal Psychological Exam: Normal Skin Exam: Normal Throat Pain/Nasal Course/Dx - Course Course Of Treatment: Rapid strep test: Negative I believe this very nice lady has a common cold. She is to follow-up with her primary care provider in 4 or 5 days if no improvement. She can basically do comfort measures which we discussed. - Differential Dx/Diagnosis Provider Diagnosis: Pharyngitis, URI (upper respiratory infection) Discharge ED - Sign-Out/Discharge Documenting (check all that apply): Patient Departure All imaging exams completed and their final reports reviewed: No Studies - Discharge Plan Condition: Good Disposition: HOME Patient Education Materials: Pharyngitis (ED) Referrals: Lizandro Esquivel MD [Primary Care Provider] - Additional Instructions: Increase fluids, rest, follow-up with your primary care provider in 3 or 4 days if no improvement. - Billing Disposition and Condition Condition: GOOD Disposition: Home
== END 2019-04-18 10:50 | disposition home or self-care (01) ==
LOC: UCEAST 09:27
DX: J06.9 Acute upper respiratory infection, unspecified (principal); J02.9 Acute pharyngitis, unspecified; I10 Essential (primary) hypertension; Z88.1 Allergy status to other antibiotic agents; Z88.8 Allergy status to other drugs, medicaments and biological substances
CPT/HCPCS: 87651; 99211; G0463

== ENCOUNTER 2019-04-28 18:51 | Emergency (ER) | payer MEDICAID, MEDICARE ==
--- OUTSIDE RECORDS SUMMARY | 2019-04-28 20:10 | XMS REPORT | Continuity of Care Document ---
:1930 External Reference #:[id number] Author Name Perez Reinoso, OD Address [address] [place] [address] Care Team Providers Name Role Phone Lizandro Lopez M.D. 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 [phone] Problems Description No Information Available Social History Type Date Description Comments Sex Unknown ETOH Use Denies alcohol use Tobacco Use Start: Unknown Patient has never smoked Smoking Status Reviewed: 04/27/19 Patient has never smoked Allergies, Adverse Reactions, Alerts Active Allergies Reaction Severity Comments Date Cipro 01/09/2019 Humira 01/09/2019 Doxycycline 01/09/2019 Enbrel 02/22/2019 Medications Active Medications SIG Qnty Indications Ordering Provider Date Lisinopril-Hydrochlorothiazide Lizandro Esquivel MD 20-25mg Tablets Omeprazole Lizandro Esquivel MD 20mg Capsules DR Hydromorphone HCL Lizandro Esquivel MD 4mg Tablets Miralax 3350NF Unknown Packet Ondansetron Unknown 4mg Tablets Dispers History Medications Ketorolac Tromethamine one drop twice a 5ml Perez Reinoso, OD 03/28/2019 - 0.4% day both eyes 04/28/2019 Solution Vigamox 1 drop left eye 6ml Hilario Brock, 03/07/2019 - 0.5% Solution four times a day, M.D. 03/28/2019 start drops morning of surgery Ketorolac Tromethamine 1 drops left eye 10ml Hilario Brock, 03/07/2019 - 0.5% twice a day M.D. 03/28/2019 Solution Pred Forte one drop four 20ml Hilario Brock, 03/07/2019 - 1% Suspension times a day left M.D. 04/28/2019 eye x 1 week, then taper as directed Immunizations Description No Information Available Vital Signs Date Vital Result Comment 03/28/2019 10:43am Intraocular Pressure Right Eye 16 mmHg Intraocular Pressure Left Eye 17 mmHg 03/22/2019 9:58am Intraocular Pressure Right Eye 16 mmHg Intraocular Pressure Left Eye 18 mmHg Results Description No Information Available Procedures Date Code Description Status 03/21/2019 94062 Extracapsular Cataract Removal W/Insertion Of Intraocular Completed Lens pr 03/14/2019 30608 Extracapsular Cataract Removal W/Insertion Of Intraocular Completed Lens pr 02/22/2019 03345 Ophthalmic Biometry By Partial Coherence Interferometry Completed W/Intra 02/22/2019 33190 Eye Exam Est Intermediate Completed 01/09/2019 15775 Oct Retina Completed 01/09/2019 11289 Eye Exam New Intermediate Completed Medical Devices Description No Information Available Encounters Description No Information Available Assessments Date Code Description Provider 04/28/2019 Z96.1 Presence of intraocular lens Perez Reinoso, OD 03/28/2019 Z96.1 Presence of intraocular lens Perez Reinoso, OD 03/22/2019 Z48.89 Encounter for other specified surgical Hilario Brock M.D. aftercare 03/21/2019 H25.11 Age-related nuclear cataract, right eye Hilario Brock M.D. 03/15/2019 Z48.89 Encounter for other specified surgical Hilario Brock M.D. aftercare 03/14/2019 H25.12 Age-related nuclear cataract, left eye Hilario Brock M.D. 02/22/2019 H25.813 Combined forms of age-related cataract, Hilario Borck M.D. 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
[2019-04-28 20:24] LABS: ABS Eosinophils 0.1 10^3/ul (0-0.6); ABS Lymphocytes 1.2 10^3/ul (1.0-4.8); ABS Monocytes 0.6 10^3/ul (0-0.8); ABS Neutrophils 7.2 10^3/ul (1.5-7.7); Eosinophil % 0.7 %; Hematocrit 36 % (35-47); Hemoglobin 12.5 g/dL (12.0-16.0); Lymphocyte % 12.9 %; Mean Corpuscular HGB Conc 35 g/dL (31-36); Mean Corpuscular Hemoglobin 34 pg (27-31); Mean Corpuscular Volume 97 fL (80-97); Mean Platelet Volume 7.1 fL (7.4-10.4); Platelet Count 268 10^3/uL (150-450); Red Blood Count 3.71 10^6 /uL (3.70-4.87); Red Cell Distribution Width 14 % (10-15)
[2019-04-28 20:41] LABS: Albumin 4.1 g/dL (3.2-5.2); Albumin/Globulin Ratio 1.3 (1-3); BUN/Creatinine Ratio 23.3 (8-20); C Reactive Protein 7.67 mg/L (<8.01); Calcium 9.4 mg/dL (8.6-10.3); EGFR African American 75.5 (>60); EGFR Non-African American 62.4 (>60); Globulin 3.2 g/dL (2-4); Magnesium 1.7 mg/dL (1.9-2.7); Potassium 3.5 mmol/L (3.5-5.0); Total Bilirubin 0.4 mg/dL (0.2-1.0); Total Protein 7.3 g/dL (6.4-8.9)
[2019-04-28] MEDS ORDERED: Mirtazapine TAB* 15 MG PO ONE (21:23)
--- NOTE | 2019-04-28 21:25 | ED ---
Lower Extremity - HPI Summary HPI Summary: Patient complains of bilateral lower extremity achiness and movement 3 months. Pain is at night, states she can't sleep at night. No pain during the day. Patient moving legs frequently during exam. Patient takes fentanyl and hydromorphone for chronic pain. Denies trauma, any other pain, symptoms or injury. Medical history is HTN, RA, chronic pain. - History of Current Complaint Chief Complaint: EDExtremityLower Stated Complaint: LEG PAIN PER EMS Time Seen by Provider: 04/28/19 19:07 Hx Obtained From: Patient, Family/Studio Hand Hx Last Menstrual Period: NA Mechanism Of Injury: Unknown Onset of Pain: Days Onset/Duration: Weeks Severity Initially: Mild Severity Currently: Mild Pain Intensity: 2 Pain Scale Used: 0-10 Numeric Timing: Intermittent Location: Is Discrete @ Character Of Pain: Aching Associated Signs And Symptoms: Positive: Negative Aggravating Factor(s): Other - Allergies/Home Medications Allergies/Adverse Reactions: Allergies Allergy/AdvReac Type Severity Reaction Status Date / Time adalimumab [From Humira] Allergy Unknown Verified 04/18/19 09:33 Reaction Details ciprofloxacin [From Cipro] Allergy Unknown Verified 04/18/19 09:33 Reaction Details doxycycline Allergy Vomiting Verified 04/18/19 09:33 etanercept [From Enbrel] Allergy Unknown Verified 04/18/19 09:33 Reaction Details lidocaine [From Lidoderm] Allergy Unknown Verified 04/18/19 09:33 Reaction Details Home Medications: Home Medications Hydromorphone HCl [Dilaudid] 2 mg PO DAILY PRN 04/28/19 [History Confirmed 04/28] Ketorolac Tromethamine 1 drop BOTH EYES BID 04/28/19 [History Confirmed 04/28/19 ] Lisinopril/HCTZ 20/25(NF) [Zestoretic 20/25(NF)] 1 tab PO DAILY 04/28/19 [ History Confirmed 04/28/19] Methotrexate TAB* 17.5 mg PO WEEKLY 04/28/19 [History Confirmed 04/28/19] Moxifloxacin 0.5% OPHTH(NF) [Vigamox 0.5% OPHTH(NF)] 1 drop LEFT EYE QID [History Confirmed 04/28/19] Omeprazole CAP (NF) [Prilosec CAP* 20 MG] 20 mg PO DAILY 04/28/19 [History Confirmed 04/28/19] fentaNYL PATCH 25 MCG/HR* [Duragesic PATCH 25 Mcg/Hr*] 25 mcg TRANSDERM Q72H 02/06 [History Confirmed 04/28/19] PMH/Surg Hx/FS Hx/Imm Hx Endocrine/Hematology History: Denies: Hx Anticoagulant Therapy, Hx Bone Marrow Disease, Hx Diabetes, Hx Sickle Cell Disease, Hx Thyroid Disease, Hx Anemia, Other Endocrine/ Hematological Disorders Cardiovascular History: Reports: Hx Coronary Artery Disease - [place] ASA 81 MG, Hx Hypertension - [place] LISINOPRIL & HYDROCHLORTHIAZIDE Denies: Hx Angina, Hx Cardiomegaly, Hx Congestive Heart Failure, Hx Pacemaker /ICD, Hx Peripheral Vascular Disease, Hx Rheumatic Fever, Hx Valvular Heart Disease, Other Cardiovascular Problems/Disorders Respiratory History: Reports: Hx Chronic Bronchitis Denies: Hx Asthma, Hx Chronic Obstructive Pulmonary Disease (COPD), Hx Pulmonary Edema, Hx Pulmonary Embolism, Hx Sleep Apnea, Other Respiratory Problems/Disorders GI History: Reports: Hx Diverticulosis, Hx Gastroesophageal Reflux Disease - [place] OMEPRAZOLE, Other GI Disorders - [place] FOR CONSTIPATION OCCASIONALLY Denies: Hx Cirrhosis, Hx Crohn's Disease, Hx Hiatal Hernia, Hx Irritable Bowel, Hx Jaundice, Hx Ulcer History: Denies: Hx Kidney Infection, Hx Kidney Stones, Other Problems/Disorders Musculoskeletal History: Reports: Hx Arthritis - R.A. HANDS/BACK/LEGS [place] METHOTREXATE, Hx Rheumatoid Arthritis, Hx Back Problems, Hx Fibromyalgia, Hx Osteoporosis, Other Musculoskeletal History - SPINAL STENOSIS Denies: Hx Bursitis, Hx Tendonitis Sensory History: Reports: Hx Cataracts - BILATERAL-SURGERY SCHEDULED, Hx Contacts or Glasses - GLASSES, Hx Glaucoma - NO MEDS, Hx Vision Problem, Hx Hearing Problem Denies: Hx Hearing Aid - TE-MOAK, Other Sensory Impairments Opthamlomology History: Reports: Hx Cataracts - BILATERAL-SURGERY SCHEDULED, Hx Contacts or Glasses - GLASSES, Hx Glaucoma - NO MEDS, Hx Vision Problem Denies: Other Sensory Impairments Neurological History: Reports: Hx Headaches - PT STATES HAPPENS VERY RARELY ANYMORE Denies: Hx Seizures, Other Neuro Impairments/Disorders Psychiatric History: Reports: Hx Anxiety - TAKES HYDROMORPHONE 0.5 TAB Denies: Hx Panic Disorder, Other Psychiatric Issues/Disorders - Cancer History Hx Chemotherapy: No - Surgical History Surgery Procedure, Year, and Place: appendectomy, hysterectomy, T&A. Lumbar decompression L4/5. TRIAL DCS. D&C Hx Anesthesia Reactions: No Infectious Disease History: No Infectious Disease History: Denies: Hx Clostridium Difficile, Hx Hepatitis, Hx Human Immunodeficiency Virus (HIV), Hx of Known/Suspected MRSA, Hx Shingles, Hx Tuberculosis, Traveled Outside the [place] in Last 30 Days - Family History Known Family History: Positive: Unknown - Pt doens't know any FMHX, Other - Negative: malignant hyperthermia, anesthesia reaction Family History: NON CONTRIBUTORY - Social History Alcohol Use: None Hx Substance Use: No Substance Use Type: Reports: Prescribed Substance Use Comment - Amount & Last Used: HYDROMORPHONE AND FENTANYL PATCH Hx Tobacco Use: No Smoking Status (MU): Never Smoked Tobacco Have You Smoked in the Last Year: No Review of Systems Constitutional: Negative Eyes: Negative ENT: Negative Cardiovascular: Negative Respiratory: Negative Gastrointestinal: Negative Genitourinary: Negative Musculoskeletal: Other Skin: Negative Neurological: Negative Psychological: Normal All Other Systems Reviewed And Are Negative: Yes Physical Exam - Summary Physical Exam Summary: Bilateral lower extremities nontender to palpation. No erythema, ecchymosis, deformity, swelling noted to bilateral lower extremities. PMS intact distally bilaterally. Normal range of motion in the ankles knees and hips bilaterally. Patient moving legs constantly. Triage Information Reviewed: Yes Vital Signs On Initial Exam: Initial Vitals Temp Pulse Resp BP Pulse Ox 97.8 F 75 16 198/115 99 04/28/19 18:59 04/28/19 18:59 04/28/19 18:59 04/28/19 18:59 04/28/19 18:59 Vital Signs Reviewed: Yes Appearance: Positive: Well-Appearing Skin: Positive: Warm Head/Face: Positive: Normal Head/Face Inspection Eyes: Positive: Normal Neck: Positive: Supple Respiratory/Lung Sounds: Positive: Clear to Auscultation Cardiovascular: Positive: Normal Abdomen Description: Positive: Nontender Musculoskeletal: Positive: Normal Neurological: Positive: Normal Psychiatric: Positive: Normal AVPU Assessment: Alert - Anthony Coma Scale Best Eye Response: 4 - Spontaneous Best Motor Response: 6 - Obeys Commands Best Verbal Response: 5 - Oriented Coma Scale Total: 15 Procedures - Sedation Patient Received Moderate/Deep Sedation with Procedure: No Diagnostics - Vital Signs Vital Signs Temp Pulse Resp BP Pulse Ox 04/28/19 18:59 97.8 F 75 16 198/115 99 - Laboratory Lab Results: Lab Results 04/28/19 04/28/19 Range/Units 20:19 20:19 WBC 9.0 (3.5-10.8) 10^3/uL RBC 3.71 (3.70-4.87) 10^6 /uL Hgb 12.5 (12.0-16.0) g/dL Hct 36 (35-47) % MCV 97 (80-97) fL MCH 34 H (27-31) pg MCHC 35 (31-36) g/dL RDW 14 (10-15) % Plt Count 268 (150-450) 10^3/uL MPV 7.1 L (7.4-10.4) fL Neut % (Auto) 79.5 % Lymph % (Auto) 12.9 % [place] % (Auto) 6.5 % Eos % (Auto) 0.7 % Baso % (Auto) 0.4 % Absolute Neuts (auto) 7.2 (1.5-7.7) 10^3/ul Absolute Lymphs (auto) 1.2 (1.0-4.8) 10^3/ul Absolute Monos (auto) 0.6 (0-0.8) 10^3/ul Absolute Eos (auto) 0.1 (0-0.6) 10^3/ul Absolute Basos (auto) 0.0 (0-0.2) 10^3/ul Absolute Nucleated RBC 0.0 10^3/ul Nucleated RBC % 0.0 Sodium 139 (135-145) mmol/L Potassium 3.5 (3.5-5.0) mmol/L Chloride 104 (101-111) mmol/L Carbon Dioxide 27 (22-32) mmol/L Anion Gap 8 (2-11) mmol/L BUN 20 (6-24) mg/dL Creatinine 0.86 (0.51-0.95) mg/dL Est GFR ( Amer) 75.5 (>60) Est GFR (Non-Af Amer) 62.4 (>60) BUN/Creatinine Ratio 23.3 H (8-20) Glucose 140 H (70-100) mg/dL Calcium 9.4 (8.6-10.3) mg/dL Magnesium 1.7 L (1.9-2.7) mg/dL Total Bilirubin 0.40 (0.2-1.0) mg/dL AST 15 (13-39) U/L ALT 11 (7-52) U/L Alkaline Phosphatase 113 H (34-104) U/L C-Reactive Protein 7.67 (<8.01) mg/L Total Protein 7.3 (6.4-8.9) g/dL Albumin 4.1 (3.2-5.2) g/dL Globulin 3.2 (2-4) g/dL Albumin/Globulin Ratio 1.3 (1-3) Result Diagrams: 04/28/19 20:19 04/28/19 20:19 Lab Statement: Any lab studies that have been ordered have been reviewed, and results considered in the medical decision making process. Lower Extremity Course/Dx - Course Course Of Treatment: Patient complains of bilateral lower extremity achiness and movement 3 months. Pain is at night, states she can't sleep at night. No pain during the day. Patient moving legs frequently during exam. Patient takes fentanyl and hydromorphone for chronic pain. Denies trauma, any other pain, symptoms or injury. Medical history is HTN, RA, chronic pain. Labs unremarkable. Patient started on Remeron here in the ED for restless leg syndrome. Rx for same for 7 days. Follow-up with primary care. - Diagnoses Provider Diagnoses: Aching leg syndrome Discharge ED - Sign-Out/Discharge Documenting (check all that apply): Patient Departure - Discharge Plan Condition: Stable Disposition: HOME Prescriptions: Mirtazapine TAB* [Remeron TAB*] 15 mg PO BEDTIME 7 Days #7 tab Patient Education Materials: Leg Pain (ED) Referrals: Lizadnro Ontiveros MD [Primary Care Provider] - Additional Instructions: Take Remeron once daily at night before bedtime for leg ache. Follow-up with primary care for further evaluation. - Billing Disposition and Condition Condition: STABLE Disposition: Home - Attestation Statements Provider Attestation: I was available for consult. This patient was seen by the DONELL. The patient was not presented to, seen by, or examined by me. Frederick Pike MD
[2019-04-28 21:35] LABS: Urine Appearance Clear; Urine Bacteria 1+ (Absent); Urine Bilirubin Negative (Negative); Urine Blood Negative (Negative); Urine Color Straw; Urine Glucose Negative (Negative); Urine Ketones Negative (Negative); Urine Nitrite Negative (Negative); Urine Protein Negative (Negative); Urine Red Blood Cell Trace(0-2/hpf) (Absent); Urine Specific Gravity 1.008 (1.010-1.030); Urine Squamous Epithelial Cell Present (Absent); Urine Urobilinogen Negative (Negative); Urine White Blood Cell Trace(0-5/hpf) (Absent)
[2019-04-28 21:44] VITALS: BP 168/101
== END 2019-04-28 21:42 | disposition home or self-care (01) ==
LOC: ED 18:51
DX: M79.604 Pain in right leg (principal); M79.605 Pain in left leg; I25.10 Atherosclerotic heart disease of native coronary artery without angina pectoris; I10 Essential (primary) hypertension; K21.9 Gastro-esophageal reflux disease without esophagitis; M06.9 Rheumatoid arthritis, unspecified; F41.9 Anxiety disorder, unspecified; Z79.82 Long term (current) use of aspirin; Z79.899 Other long term (current) drug therapy; Z90.89 Acquired absence of other organs; Z90.710 Acquired absence of both cervix and uterus; Z88.4 Allergy status to anesthetic agent; Z88.1 Allergy status to other antibiotic agents; Z88.8 Allergy status to other drugs, medicaments and biological substances
CPT/HCPCS: 36415; 80053; 81003; 81015; 83735; 85025; 86140; 87086; 99283; A9270-GY